=== PATIENT | male | born 1970 | race Caucasian/White ===

== ENCOUNTER 2019-05-13 18:41 | Emergency (ER) | payer OTHER ==
[2019-05-13] MEDS ORDERED: Sodium Chloride 0.9% 1,000 ML IV ONE (19:47)
[2019-05-13] MEDS ORDERED: Morphine 10 MG/ML Syringe IVPUSH ONE (19:47)
--- NOTE | 2019-05-13 19:55 | EDM.PDOC ---
ED HPI GENERAL MEDICAL PROBLEM - General Chief Complaint: Gastrointestinal Problem Stated Complaint: CHEST PAIN, DIARRHEA Time Seen by Provider: 05/13/19 19:20 Source of Information: Reports: Patient History Limitations: Reports: No Limitations - History of Present Illness INITIAL COMMENTS - FREE TEXT/NARRATIVE: 48-year-old gentleman presents to the emergency room with a chief complaint of abdominal pain. Patient has a history of pancreatitis, appendicitis, and multiple abdominal surgeries. Onset: Today Duration: Hour(s):, Getting Worse Location: Reports: Abdomen Quality: Reports: Ache Severity: Moderate Improves with: Reports: None Worsens with: Reports: None Associated Symptoms: Reports: Nausea/Vomiting Chest/Abd Pain Score (Numeric/FACES): 5 - Related Data Allergies Allergy/AdvReac Type Severity Reaction Status Date / Time No Known Allergies Allergy Verified 05/13/19 19:15 Home Meds: Home Meds Celecoxib [CeleBREX] 200 mg PO DAILY 05/13/19 [History] Escitalopram [Lexapro] 10 mg PO DAILY 05/13/19 [History] Lisinopril [Zestril] 20 mg PO DAILY 05/13/19 [History] Omeprazole/Sodium Bicarbonate [Zegerid OTC 20-1,100 MG] 1 tab PO DAILY 05/13/19 [History] Tamsulosin [Flomax] 0.4 mg PO DAILY 05/13/19 [History] atorvaSTATin [Lipitor] 20 mg PO DAILY 05/13/19 [History] Past Medical History Cardiovascular History: Reports: High Cholesterol, Hypertension Genitourinary History: Reports: Prostate Disorder, Renal Calculus Neurological History: Reports: Migraines Psychiatric History: Reports: Anxiety - Infectious Disease History Infectious Disease History: Reports: Chicken Pox - Past Surgical History GI Surgical History: Reports: Appendectomy, Cholecystectomy, Hernia Repair/Other Musculoskeletal Surgical History: Reports: Other (See Below) Other Musculoskeletal Surgeries/Procedures:: Knee Scope Social & Family History - Tobacco Use Smoking Status *Q: Never Smoker - Caffeine Use Caffeine Use: Reports: None - Recreational Drug Use Recreational Drug Use: No ED ROS GENERAL - Review of Systems Review Of Systems: See Below Constitutional: Reports: No Symptoms HEENT: Reports: No Symptoms Respiratory: Reports: No Symptoms Cardiovascular: Reports: No Symptoms Endocrine: Reports: No Symptoms GI/Abdominal: Reports: No Symptoms, Abdominal Pain : Reports: No Symptoms Musculoskeletal: Reports: No Symptoms Skin: Reports: No Symptoms Neurological: Reports: No Symptoms Psychiatric: Reports: No Symptoms Hematologic/Lymphatic: Reports: No Symptoms Immunologic: Reports: No Symptoms ED EXAM, GI/ABD - Physical Exam Exam: See Below Exam Limited By: No Limitations General Appearance: Alert, WD/WN, No Apparent Distress Eyes: Bilateral: Normal Appearance Ears: Normal External Exam, Normal Canal, Hearing Grossly Normal Nose: Normal Inspection, Normal Mucosa Throat/Mouth: Normal Inspection, Normal Lips Head: Atraumatic, Normocephalic Neck: Normal Inspection, Supple, Non-Tender Respiratory/Chest: No Respiratory Distress, Lungs Clear, Normal Breath Sounds, No Accessory Muscle Use, Chest Non-Tender Cardiovascular: Normal Peripheral Pulses, Regular Rate, Rhythm GI/Abdominal Exam: Normal Bowel Sounds, Soft, Non-Tender, No Abnormal Bruit, No Mass (Male) Exam: No Hernia, Normal Inspection Back Exam: Normal Inspection, Full Range of Motion Extremities: Normal Inspection, Normal Range of Motion Neurological: Alert, Oriented, CN II-XII Intact, Normal Reflexes Psychiatric: Normal Affect Skin Exam: Warm, Dry, Intact, Normal Color Lymphatic: No Adenopathy Course - Vital Signs Last Recorded V/S: Last Vital Signs Temp 98.3 F 05/13/19 22:37 Pulse 87 05/13/19 22:37 Resp 18 05/13/19 22:37 BP 109/64 05/13/19 22:37 Pulse Ox 97 05/13/19 22:37 - Orders/Labs/Meds Orders: Active Orders 24 hr Category Date Time Status EKG 12 Lead [EKG Documentation Completion] [RC] STAT Care 05/13/19 19:49 Active Sodium Chloride 0.9% [Normal Saline] 500 ml Med 05/13/19 21:15 Active IV STAT Medication Orders Sodium Chloride (Normal Saline) 500 mls @ 200 mls/hr IV STAT LATRICE Last Admin: 05/13/19 21:40 Dose: 200 mls/hr Labs: Laboratory Tests 05/13/19 05/13/19 05/13/19 Range/Units 19:50 19:53 19:53 WBC 12.37 H (4.0-11.0) K/uL RBC 4.95 (4.50-5.90) M/uL Hgb 14.7 (13.0-17.0) g/dL Hct 44.1 (38.0-50.0) % MCV 89.1 (80.0-98.0) fL MCH 29.7 (27.0-32.0) pg MCHC 33.3 (31.0-37.0) g/dL RDW Std Deviation 44.3 (28.0-62.0) fl RDW Coeff of Chris 14 (11.0-15.0) % Plt Count 265 (150-400) K/uL MPV 9.30 (7.40-12.00) fL Neut % (Auto) 71.6 (48.0-80.0) % Lymph % (Auto) 18.1 (16.0-40.0) % [place] % (Auto) 8.5 (0.0-15.0) % Eos % (Auto) 1.6 (0.0-7.0) % Baso % (Auto) 0.2 (0.0-1.5) % Neut # (Auto) 8.9 H (1.4-5.7) K/uL Lymph # (Auto) 2.2 (0.6-2.4) K/uL [place] # (Auto) 1.1 H (0.0-0.8) K/uL Eos # (Auto) 0.2 (0.0-0.7) K/uL Baso # (Auto) 0.0 (0.0-0.1) K/uL Nucleated RBC % 0.0 /100WBC Nucleated RBCs # 0 K/uL Sodium 139 (136-148) mmol/L Potassium 3.5 (3.5-5.1) mmol/L Chloride 103 (98-107) mmol/L Carbon Dioxide 25.6 (21.0-32.0) mmol/L BUN 23 H (7.0-18.0) mg/dL Creatinine 1.4 H (0.8-1.3) mg/dL Est Cr Clr Drug Dosing 65.90 mL/min Estimated GFR (MDRD) 53.9 ml/min Glucose 97 (74-106) mg/dL Calcium 8.8 (8.5-10.1) mg/dL Total Bilirubin 0.9 (0.2-1.0) mg/dL AST 44 H (15-37) IU/L ALT 81 H (14-63) IU/L Alkaline Phosphatase 112 (46-116) U/L Troponin I < 0.050 (0.000-0.056) ng/mL Total Protein 7.0 (6.4-8.2) g/dL Albumin 3.8 (3.4-5.0) g/dL Globulin 3.2 (2.6-4.0) g/dL Albumin/Globulin Ratio 1.2 (0.9-1.6) Lipase 89 (73-393) U/L Urine Color YELLOW Urine Appearance CLEAR Urine pH 6.0 (5.0-8.0) Ur Specific [place] 1.025 (1.001-1.035) Urine Protein NEGATIVE (NEGATIVE) mg/dL Urine Glucose (UA) NEGATIVE (NEGATIVE) mg/dL Urine Ketones NEGATIVE (NEGATIVE) mg/dL Urine Occult Blood TRACE-INTACT H (NEGATIVE) Urine Nitrite NEGATIVE (NEGATIVE) Urine Bilirubin NEGATIVE (NEGATIVE) Urine Urobilinogen 0.2 (<2.0) EU/dL Ur Leukocyte Esterase NEGATIVE (NEGATIVE) Urine RBC 1-2 (0-2/HPF) Urine WBC 0-1 (0-5/HPF) Ur Epithelial Cells RARE (NONE-FEW) Urine Bacteria RARE (NEGATIVE) 05/13/19 Range/Units 23:52 WBC (4.0-11.0) K/uL RBC (4.50-5.90) M/uL Hgb (13.0-17.0) g/dL Hct (38.0-50.0) % MCV (80.0-98.0) fL MCH (27.0-32.0) pg MCHC (31.0-37.0) g/dL RDW Std Deviation (28.0-62.0) fl RDW Coeff of Chris (11.0-15.0) % Plt Count (150-400) K/uL MPV (7.40-12.00) fL Neut % (Auto) (48.0-80.0) % Lymph % (Auto) (16.0-40.0) % [place] % (Auto) (0.0-15.0) % Eos % (Auto) (0.0-7.0) % Baso % (Auto) (0.0-1.5) % Neut # (Auto) (1.4-5.7) K/uL Lymph # (Auto) (0.6-2.4) K/uL [place] # (Auto) (0.0-0.8) K/uL Eos # (Auto) (0.0-0.7) K/uL Baso # (Auto) (0.0-0.1) K/uL Nucleated RBC % /100WBC Nucleated RBCs # K/uL Sodium (136-148) mmol/L Potassium (3.5-5.1) mmol/L Chloride (98-107) mmol/L Carbon Dioxide (21.0-32.0) mmol/L BUN (7.0-18.0) mg/dL Creatinine (0.8-1.3) mg/dL Est Cr Clr Drug Dosing mL/min Estimated GFR (MDRD) ml/min Glucose (74-106) mg/dL Calcium (8.5-10.1) mg/dL Total Bilirubin (0.2-1.0) mg/dL AST (15-37) IU/L ALT (14-63) IU/L Alkaline Phosphatase (46-116) U/L Troponin I < 0.050 (0.000-0.056) ng/mL Total Protein (6.4-8.2) g/dL Albumin (3.4-5.0) g/dL Globulin (2.6-4.0) g/dL Albumin/Globulin Ratio (0.9-1.6) Lipase (73-393) U/L Urine Color Urine Appearance Urine pH (5.0-8.0) Ur Specific [place] (1.001-1.035) Urine Protein (NEGATIVE) mg/dL Urine Glucose (UA) (NEGATIVE) mg/dL Urine Ketones (NEGATIVE) mg/dL Urine Occult Blood (NEGATIVE) Urine Nitrite (NEGATIVE) Urine Bilirubin (NEGATIVE) Urine Urobilinogen (<2.0) EU/dL Ur Leukocyte Esterase (NEGATIVE) Urine RBC (0-2/HPF) Urine WBC (0-5/HPF) Ur Epithelial Cells (NONE-FEW) Urine Bacteria (NEGATIVE) Meds: Medications Generic Name Dose Route Start Last Admin Trade Name Freq PRN Reason Stop Dose Admin Sodium Chloride 500 mls @ 200 mls/hr 05/13/19 21:15 05/13/19 21:40 Normal Saline IV 200 mls/hr STAT LATRICE Administration Discontinued Medications Generic Name Dose Route Start Last Admin Trade Name Davion PRN Reason Stop Dose Admin Sodium Chloride 1,000 mls @ 1,000 mls/hr 05/13/19 19:47 05/13/19 19:53 Normal Saline IV 05/13/19 20:46 1,000 mls/hr .Bolus ONE Administration Morphine Sulfate 5 mg 05/13/19 19:47 05/13/19 20:05 Morphine IVPUSH 05/13/19 19:48 5 mg ONETIME ONE Administration Ondansetron HCl 4 mg 05/13/19 19:59 05/13/19 20:04 Zofran IVPUSH 05/13/19 20:00 4 mg ONETIME ONE Administration Departure - Departure Time of Disposition: 00:39 Disposition: Home, Self-Care 01 Condition: Good Clinical Impression: Gastroenteritis - Discharge Information Instructions: Viral Gastroenteritis, Adult, [id number] Referrals: Humble Amado MD [Primary Care Provider] - Forms: ED Department Discharge Additional Instructions: Take your medication as prescribed. Return for any problems. Follow-up with your primary care physician. Sepsis Event Note - Evaluation Sepsis Screening Result: No Definite Risk - Focused Exam Vital Signs: Vital Signs Temp Pulse Resp BP Pulse Ox 05/13/19 22:37 98.3 F 87 18 109/64 97 05/13/19 21:44 95 16 109/64 98 05/13/19 20:50 97.9 F 82 18 111/67 96 05/13/19 20:08 98.0 F 83 18 105/77 98 05/13/19 19:18 96.9 F 112 H 16 111/78 97 Date Exam was Performed: 05/14/19 Time Exam was Performed: 00:39 - My Orders Last 24 Hours: My Active Orders 05/13/19 19:49 EKG 12 Lead [EKG Documentation Completion] [RC] STAT 05/13/19 21:15 Sodium Chloride 0.9% [Normal Saline] 500 ml IV STAT - Assessment/Plan Last 24 Hours: My Active Orders 05/13/19 19:49 EKG 12 Lead [EKG Documentation Completion] [RC] STAT 05/13/19 21:15 Sodium Chloride 0.9% [Normal Saline] 500 ml IV STAT
[2019-05-13] MEDS ORDERED: Ondansetron 4 MG/2 ML SDV IVPUSH ONE (19:59)
[2019-05-13 20:25] LABS: BLOOD UREA NITROGEN,BUN 23 mg/dL (7.0-18.0); CARBON DIOXIDE,CO2 25.6 mmol/L (21.0-32.0); CHLORIDE,CL 103 mmol/L (98-107); GLUCOSE RANDOM 97 mg/dL (74-106); LIPASE 89 U/L (73-393); POTASSIUM,K 3.5 mmol/L (3.5-5.1); SODIUM,NA 139 mmol/L (136-148)
--- NOTE | 2019-05-13 20:50 | CR ---
Chest: Frontal view of the chest was obtained. Comparison: No prior chest imaging is available. Heart size and mediastinum are normal. Lungs are clear with no acute parenchymal change. Bony structures are grossly intact. Impression: 1. Nothing acute is appreciated on frontal chest x-ray. Diagnostic code #1 Study was dictated in MDT
--- NOTE | 2019-05-13 20:57 | CT ---
CT abdomen and pelvis Technique: Multiple axial sections were obtained from above the dome of the diaphragm inferiorly through the abdomen and pelvis through the pubic symphysis. Intravenous and oral contrast not utilized. Comparison: No prior abdominal imaging is available. Findings: Visualized lung bases show nothing acute. Liver shows a low-density lesion compatible with a cyst within the dome of the right lobe measuring 1.2 cm. No additional abnormality is appreciated within the liver. Surgical clips are seen from prior cholecystectomy. Spleen appears within normal limits. Adrenal glands show no nodule. Pancreas shows no focal parenchymal abnormality. Aorta shows atherosclerotic change without aneurysm. No retroperitoneal adenopathy or mesenteric abnormalities are seen. Surgical material is seen around the cecum. Appendix is not visualized. Kidney shows several small nonobstructing calculi. Small cyst is noted off the left medial kidney measuring 1.6 cm. RIGHT kidney shows a small cortical cyst anteriorly measuring 1 cm. No additional abnormality is seen within the kidneys. Ureters show no dilatation. No abnormal calcifications are seen along the course of the ureters. Fat-containing umbilical hernia is noted. No pelvic mass or adenopathy is seen. No free fluid or inflammatory change is identified. Bone window settings were reviewed which shows disc space narrowing at L4-L5 with vacuum phenomena. No acute osseous finding is appreciated. Impression: 1. Findings as noted above. 2. Nothing acute is appreciated on noncontrast CT study of the abdomen and pelvis. Diagnostic code #2 Study was dictated in MDT
[2019-05-13] MEDS ORDERED: Sodium Chloride 0.9% 500 ML IV SCH (21:15)
== END 2019-05-14 01:00 | disposition home or self-care (01) ==
LOC: MW.ED 18:41
DX: K52.9 Noninfective gastroenteritis and colitis, unspecified (principal); I10 Essential (primary) hypertension
CPT/HCPCS: 36415; 71045; 74176; 80053; 81001; 83690; 84484; 85025; 93005; 96361; 96374; 96375; 99285; J2270; J2405; J7030; J7040; 99283

== ENCOUNTER 2019-09-04 21:09 | Emergency (ER) | payer OTHER ==
[2019-09-04] MEDS ORDERED: Ondansetron 4 MG/2 ML SDV IVPUSH ONE (21:32)
[2019-09-04] MEDS ORDERED: Sodium Chloride 0.9% 2.5 ML Syringe FLUSH PRN (21:32)
[2019-09-04] MEDS ORDERED: Aspirin 81 MG Tab.Chew PO ONE (21:32)
[2019-09-04] MEDS ORDERED: Sodium Chloride 0.9% 10 ML Syringe FLUSH PRN (21:32)
[2019-09-04] MEDS ORDERED: Sodium Chloride 0.9% 1,000 ML IV ONE (21:35)
--- NOTE | 2019-09-04 21:37 | EDM.PDOC ---
ED HPI GENERAL MEDICAL PROBLEM - General Chief Complaint: Fever Stated Complaint: fever, nausea, chills Time Seen by Provider: 09/04/19 21:18 - History of Present Illness INITIAL COMMENTS - FREE TEXT/NARRATIVE: History of present illness: [] Reports that he is going began to have muscle aches and joint pain in his large joints. Since then he has had gradual increase symptoms except yesterday he was relatively symptom-free until evening. At that time he added to his other symptoms nausea and today vomits. Continues to have intermittent chest pressure and shortness of breath as well as diaphoresis. Muscle aches was the p rimary concern but has been febrile off and on for 4 days. As high as 102. Treated for both blood pressure and cholesterol. Does not smoke he has a negative family history of heart disease. Review of systems: As per history of present illness and below otherwise all systems reviewed and negative. Past medical history: As per history of present illness and as reviewed below otherwise noncont ributory. Surgical history: As per history of present illness and as reviewed below otherwise noncontributory. Social history: No reported history of drug or alcohol abuse. Family history: As per history of present illness and as reviewed below otherwise noncontributory. Physical exam: Constitutional - well developed, well-nourished and in no acute distress -quite a bit over the ideal body weight for his height HEENT - normocephalic, no evidence of trauma - external nose and mouth normal - no mass in neck and no JVD - mucosae moist EYES - full EOM, PERRL, no icterus - no evidence of inflammation, injection, or drainage Respiratory - no respiratory distress, equal bilateral expansion, lungs clear to auscultation and no abnormal lung sounds Cardiovascular - Regular Rhythm with S1 and S2 appreciated and no murmur, gallop or rub. Peripheral pulses symmetrically normal in all four extremities GI - abdomen soft without distension or organomegaly - normal bowel sounds - no guard or rebound Musculoskeletal no gross deformity of long bones or joints - no tenderness, swelling or edema Neurologic - Alert and oriented times four - CN II-XII grossly intact - motor sensory and coordination symmetrically normal Psychiatric - appropriate mood and affect with normal thought content Hematologic - No petechiae or purpura - mucosa appropriate color and sclera not pale - normal nail bed color and refill Integument - no rash or evidence of trauma - normal turgor Diagnostics: [] Therapeutics: [] Impression: [] Plan: [] Definitive disposition and diagnosis as appropriate pending reevaluation and review of above. general bodyaches Pain Score (Numeric/FACES): 6 - Related Data Allergies Allergy/AdvReac Type Severity Reaction Status Date / Time No Known Allergies Allergy Verified 09/04/19 21:23 Home Meds: Home Meds Celecoxib [CeleBREX] 200 mg PO DAILY 05/13/19 [History] Escitalopram [Lexapro] 10 mg PO DAILY 05/13/19 [History] Tamsulosin [Flomax] 0.4 mg PO BEDTIME 05/13/19 [History] atorvaSTATin [Lipitor] 20 mg PO DAILY 05/13/19 [History] lisinopriL [Zestril] 20 mg PO DAILY 05/13/19 [History] Past Medical History HEENT History: Reports: Impaired Vision, Other (See Below) Other HEENT History: wears glasses Cardiovascular History: Reports: High Cholesterol, Hypertension Respiratory History: Reports: Sleep Apnea, Other (See Below) Other Respiratory History: on cpap Gastrointestinal History: Reports: None Genitourinary History: Reports: Prostate Disorder, Renal Calculus Musculoskeletal History: Reports: None Neurological History: Reports: Migraines Psychiatric History: Reports: Anxiety - Infectious Disease History Infectious Disease History: Reports: Chicken Pox - Past Surgical History HEENT Surgical History: Reports: None Cardiovascular Surgical History: Reports: None Respiratory Surgical History: Reports: None GI Surgical History: Reports: Appendectomy, Cholecystectomy, Hernia Repair/Other Male Surgical History: Reports: Kidney Stone Extraction Neurological Surgical History: Reports: None Musculoskeletal Surgical History: Reports: Other (See Below) Other Musculoskeletal Surgeries/Procedures:: Knee Scope Social & Family History - Family History Family Medical History: Noncontributory - Tobacco Use Smoking Status *Q: Never Smoker Second Hand Smoke Exposure: No - Caffeine Use Caffeine Use: Reports: Tea - Recreational Drug Use Recreational Drug Use: No ED ROS GENERAL - Review of Systems Review Of Systems: Comprehensive ROS is negative, except as noted in HPI. ED EXAM, GENERAL - Physical Exam Exam: See Below Free Text/Narrative:: My physical exam as in the HPI EKG INTERPRETATION EKG Date: 09/04/19 Rhythm: NSR P-Wave: Present QRS: Normal Comparison: No Change EKG Interpretation Comments: No acute ischemia or injury Course - Vital Signs Text/Narrative:: 10:47 PM heart rate remains 97-99 oxygen saturation 99 and patient probably has a viral syndrome. Because of his size I will add a d-dimer and if it is po sitive we will study him for possible pulmonary embolus otherwise treat him as a virus. 2301 the patient's d-dimer is negative and he will be discharged with instructions to be cared for as a viral infection. Last Recorded V/S: Last Vital Signs Temp 97.6 F 09/04/19 21:20 Pulse 101 H 09/04/19 22:56 Resp 16 09/04/19 22:56 BP 137/83 09/04/19 22:56 Pulse Ox 94 L 09/04/19 22:56 - Orders/Labs/Meds Orders: Active Orders 24 hr Category Date Time Status EKG Documentation Completion [RC] AM Care 09/04/19 21:32 Active Sodium Chloride 0.9% [Saline Flush] Med 09/04/19 21:32 Active 10 ml FLUSH ASDIRECTED PRN Sodium Chloride 0.9% [Saline Flush] Med 09/04/19 21:32 Active 2.5 ml FLUSH ASDIRECTED PRN Saline Lock Insert [OM.PC] Stat Oth 09/04/19 21:32 Ordered Medication Orders Sodium Chloride (Saline Flush) 10 ml FLUSH ASDIRECTED PRN PRN Reason: Keep Vein Open Sodium Chloride (Saline Flush) 2.5 ml FLUSH ASDIRECTED PRN PRN Reason: Keep Vein Open Labs: Laboratory Tests 09/04/19 09/04/19 09/04/19 Range/Units 21:45 21:45 21:45 WBC 5.57 (4.0-11.0) K/uL RBC 4.86 (4.50-5.90) M/uL Hgb 14.3 (13.0-17.0) g/dL Hct 43.5 (38.0-50.0) % MCV 89.5 (80.0-98.0) fL MCH 29.4 (27.0-32.0) pg MCHC 32.9 (31.0-37.0) g/dL RDW Std Deviation 42.7 (28.0-62.0) fl RDW Coeff of Chris 13 (11.0-15.0) % Plt Count 216 (150-400) K/uL MPV 9.00 (7.40-12.00) fL Neut % (Auto) 63.3 (48.0-80.0) % Lymph % (Auto) 24.8 (16.0-40.0) % [place] % (Auto) 10.8 (0.0-15.0) % Eos % (Auto) 0.9 (0.0-7.0) % Baso % (Auto) 0.2 (0.0-1.5) % Neut # (Auto) 3.5 (1.4-5.7) K/uL Lymph # (Auto) 1.4 (0.6-2.4) K/uL [place] # (Auto) 0.6 (0.0-0.8) K/uL Eos # (Auto) 0.1 (0.0-0.7) K/uL Baso # (Auto) 0.0 (0.0-0.1) K/uL Nucleated RBC % 0.0 /100WBC Nucleated RBCs # 0 K/uL D-Dimer, Quantitative 0.37 (0.0-0.50) mg/L FEU Sodium 140 (136-148) mmol/L Potassium 3.4 L (3.5-5.1) mmol/L Chloride 103 (98-107) mmol/L Carbon Dioxide 26.9 (21.0-32.0) mmol/L BUN 21 H (7.0-18.0) mg/dL Creatinine 1.3 (0.8-1.3) mg/dL Est Cr Clr Drug Dosing 70.97 mL/min Estimated GFR (MDRD) 58.7 ml/min Glucose 105 (74-106) mg/dL Calcium 8.2 L (8.5-10.1) mg/dL Total Bilirubin 0.7 (0.2-1.0) mg/dL AST 33 (15-37) IU/L ALT 47 (14-63) IU/L Alkaline Phosphatase 124 H (46-116) U/L Creatine Kinase 142 (26-308) U/L Troponin I < 0.050 (0.000-0.056) ng/mL Total Protein 7.8 (6.4-8.2) g/dL Albumin 3.8 (3.4-5.0) g/dL Globulin 4.0 (2.6-4.0) g/dL Albumin/Globulin Ratio 0.9 (0.9-1.6) Lipase 131 (73-393) U/L COVID-19 (MARCUS) (NEGATIVE) 09/04/19 Range/Units 22:15 WBC (4.0-11.0) K/uL RBC (4.50-5.90) M/uL Hgb (13.0-17.0) g/dL Hct (38.0-50.0) % MCV (80.0-98.0) fL MCH (27.0-32.0) pg MCHC (31.0-37.0) g/dL RDW Std Deviation (28.0-62.0) fl RDW Coeff of Chris (11.0-15.0) % Plt Count (150-400) K/uL MPV (7.40-12.00) fL Neut % (Auto) (48.0-80.0) % Lymph % (Auto) (16.0-40.0) % [place] % (Auto) (0.0-15.0) % Eos % (Auto) (0.0-7.0) % Baso % (Auto) (0.0-1.5) % Neut # (Auto) (1.4-5.7) K/uL Lymph # (Auto) (0.6-2.4) K/uL [place] # (Auto) (0.0-0.8) K/uL Eos # (Auto) (0.0-0.7) K/uL Baso # (Auto) (0.0-0.1) K/uL Nucleated RBC % /100WBC Nucleated RBCs # K/uL D-Dimer, Quantitative (0.0-0.50) mg/L FEU Sodium (136-148) mmol/L Potassium (3.5-5.1) mmol/L Chloride (98-107) mmol/L Carbon Dioxide (21.0-32.0) mmol/L BUN (7.0-18.0) mg/dL Creatinine (0.8-1.3) mg/dL Est Cr Clr Drug Dosing mL/min Estimated GFR (MDRD) ml/min Glucose (74-106) mg/dL Calcium (8.5-10.1) mg/dL Total Bilirubin (0.2-1.0) mg/dL AST (15-37) IU/L ALT (14-63) IU/L Alkaline Phosphatase (46-116) U/L Creatine Kinase (26-308) U/L Troponin I (0.000-0.056) ng/mL Total Protein (6.4-8.2) g/dL Albumin (3.4-5.0) g/dL Globulin (2.6-4.0) g/dL Albumin/Globulin Ratio (0.9-1.6) Lipase (73-393) U/L COVID-19 (MARCUS) NEGATIVE (NEGATIVE) Meds: Medications Generic Name Dose Route Start Last Admin Trade Name Freq PRN Reason Stop Dose Admin Sodium Chloride 10 ml 09/04/19 21:32 Saline Flush FLUSH ASDIRECTED PRN Keep Vein Open Sodium Chloride 2.5 ml 09/04/19 21:32 Saline Flush FLUSH ASDIRECTED PRN Keep Vein Open Discontinued Medications Generic Name Dose Route Start Last Admin Trade Name Freq PRN Reason Stop Dose Admin Aspirin 324 mg 09/04/19 21:32 09/04/19 22:02 Aspirin PO 09/04/19 21:33 324 mg ONETIME ONE Administration Sodium Chloride 1,000 mls @ 999 mls/hr 09/04/19 21:35 09/04/19 22:01 Normal Saline IV 09/04/19 22:35 999 mls/hr .BOLUS ONE Administration Ondansetron HCl 4 mg 09/04/19 21:32 09/04/19 22:02 Zofran IVPUSH 09/04/19 21:33 4 mg ONETIME ONE Administration Departure - Departure Time of Disposition: 23:02 Disposition: Home, Self-Care 01 Condition: Good Clinical Impression: Viral syndrome, Myalgia - Discharge Information Instructions: Viral Respiratory Infection, [id number], Musculoskeletal Pain Referrals: Humble Amado MD [Primary Care Provider] - Forms: ED Department Discharge Additional Instructions: The following information is given to patients seen in the emergency department who are being discharged to home. This information is to outline your options for follow-up care. We provide all patients seen in our emergency department with a follow-up referral. The need for follow-up, as well as the timing and circumstances, are variable depending upon the specifics of your emergency department visit. If you don't have a primary care physician on staff, we will provide you with a referral. We always advise you to contact your personal physician following an emergency department visit to inform them of the circumstance of the visit and for follow-up with them and/or the need for any referrals to a consulting sp ecialist. The emergency department will also refer you to a specialist when appropriate. This referral assures that you have the opportunity for follow-up care with a specialist. All of these measure are taken in an effort to provide you with optimal care, which includes your follow-up. Under all circumstances we always encourage you to contact your private physician who remains a resource for coordinating your care. When calling for follow-up care, please make the office aware that this follow-up is from your recent emergency room visit. If for any reason you are refused follow-up, please contact the [facility] Emergency Department at and asked to speak to the emergency department charge nurse. [facility] - [facility] [address] [place] [address] [place] [address] Sepsis Event Note (ED) - Evaluation Sepsis Screening Result: No Definite Risk - Focused Exam Vital Signs: Vital Signs Temp Pulse Resp BP Pulse Ox 09/04/19 22:56 101 H 16 137/83 94 L 09/04/19 21:20 97.6 F 104 H 19 129/84 96 - My Orders Last 24 Hours: My Active Orders 09/04/19 21:32 EKG Documentation Completion [RC] AM Sodium Chloride 0.9% [Saline Flush] 10 ml FLUSH ASDIRECTED PRN Sodium Chloride 0.9% [Saline Flush] 2.5 ml FLUSH ASDIRECTED PRN Saline Lock Insert [OM.PC] Stat - Assessment/Plan Last 24 Hours: My Active Orders 09/04/19 21:32 EKG Documentation Completion [RC] AM Sodium Chloride 0.9% [Saline Flush] 10 ml FLUSH ASDIRECTED PRN Sodium Chloride 0.9% [Saline Flush] 2.5 ml FLUSH ASDIRECTED PRN Saline Lock Insert [OM.PC] Stat
[2019-09-04 22:22] LABS: BLOOD UREA NITROGEN,BUN 21 mg/dL (7.0-18.0); CARBON DIOXIDE,CO2 26.9 mmol/L (21.0-32.0); CHLORIDE,CL 103 mmol/L (98-107); GLUCOSE RANDOM 105 mg/dL (74-106); LIPASE 131 U/L (73-393); POTASSIUM,K 3.4 mmol/L (3.5-5.1); SODIUM,NA 140 mmol/L (136-148)
--- NOTE | 2019-09-04 22:31 | CR ---
Indication: Chest pressure Technique: Chest 1 view Comparison: None Findings/Impression: Cardiovascular and mediastinum: Heart size and vasculature are normal in caliber and appearance. Mediastinum is within normal limits. Lungs and pleural space: Lungs are clear. No sign of infiltrate or mass. No sign of pleural effusion. No pneumothorax. Bones and soft tissues: No significant findings. Dictated by Khadijah De Leon MD @ Sep 04 2019 10:29PM Signed by Dr. Khadijah De Leon @ Sep 04 2019 10:29PM
== END 2019-09-04 23:20 | disposition home or self-care (01) ==
LOC: MW.ED 21:09
DX: B34.9 Viral infection, unspecified (principal); M79.10 Myalgia, unspecified site; F41.9 Anxiety disorder, unspecified; E78.00 Pure hypercholesterolemia, unspecified; I10 Essential (primary) hypertension; Z20.828 Contact with and (suspected) exposure to other viral communicable diseases; Z90.49 Acquired absence of other specified parts of digestive tract; Z79.899 Other long term (current) drug therapy
CPT/HCPCS: 36415; 71045; 80053; 82550; 83690; 84484; 85025; 85379; 87635; 93005; 96374; 99284; A9270; J2405; J7030; 99283; U0002

== ENCOUNTER 2019-09-07 23:10 | Emergency (ER) | payer OTHER ==
[2019-09-07] MEDS ORDERED: HYDROmorphone 1 MG/ML Syringe IVPUSH ONE (23:30)
[2019-09-07] MEDS ORDERED: Ondansetron 4 MG/2 ML SDV IVPUSH ONE (23:30)
[2019-09-07] MEDS ORDERED: Sodium Chloride 0.9% 1,000 ML IV ONE (23:32)
[2019-09-07] MEDS ORDERED: Sodium Chloride 0.9% 10 ML Syringe FLUSH PRN (23:33)
[2019-09-07] MEDS ORDERED: Sodium Chloride 0.9% 2.5 ML Syringe FLUSH PRN (23:33)
[2019-09-07 23:53] LABS: BLOOD UREA NITROGEN,BUN 19 mg/dL (7.0-18.0); CARBON DIOXIDE,CO2 25.2 mmol/L (21.0-32.0); CHLORIDE,CL 103 mmol/L (98-107); GLUCOSE RANDOM 104 mg/dL (74-106); LIPASE 146 U/L (73-393); POTASSIUM,K 3.7 mmol/L (3.5-5.1); SODIUM,NA 140 mmol/L (136-148)
[2019-09-08] MEDS ORDERED: Alum Hydrox/Mag Hydrox/Simeth 15 ML, Lidocaine 2% 5 ML PO ONE ×2 (00:08)
[2019-09-08] MEDS ORDERED: Iopamidol 755 MG/ML 500 ML Multipack Bottle IVPUSH STA (00:39)
--- NOTE | 2019-09-08 00:47 | CR ---
INDICATION: chest pain INDICATION: Chest pain TECHNIQUE: Chest 1 view. COMPARISON: 09/04/2019 FINDINGS: Cardiovascular and mediastinum: Heart size and vasculature are normal in caliber and appearance. Mediastinum is within normal limits. Lungs and pleural space: Bilateral atelectasis. No sign of infiltrate or mass. No sign of pleural effusion. No pneumothorax. Bones and soft tissues: No significant findings. IMPRESSION: Unremarkable chest. Dictated by Mauricio Del Castillo MD @ 09/08/2019 12:46:25 AM Dictated by: Mauricio Del Castillo MD @ 09/08/2019 00:46:30 (Electronically Signed)
--- NOTE | 2019-09-08 01:28 | CT ---
INDICATION: Abdominal pain and fever TECHNIQUE: Axial images were obtained from the diaphragm to the pubic symphysis. Reformats were obtained in the coronal and sagittal plane. IV Contrast: 100 cc Isovue 370 Oral Contrast: None COMPARISON: Abdomen and pelvis CT 05/13/2019 FINDINGS: Lower chest: Trace right pleural effusion with patchy and linear areas of consolidation lung bases, likely atelectasis. Trace pericardial fluid. Liver: Normal in contour with 13 millimeter cyst at the dome. Gallbladder and bile ducts: Status post cholecystectomy. Spleen: Unremarkable. Normal in size without mass. Pancreas: Unremarkable. No mass or inflammation. Adrenal glands: Unremarkable. No nodules. Kidneys: Symmetric renal enhancement without hydronephrosis with exophytic 10 millimeter cyst at the anterior aspect of the right kidney. Nonobstructing nephrolithiasis lower pole left kidney. Exophytic cyst lower pole left kidney measuring 9 millimeters. Vasculature: Unremarkable. GI tract: Stomach unremarkable with no dilated loops of large or small intestine. Suture line at the cecal tip suggesting prior appendectomy. Fat containing umbilical hernia. Colonic diverticulosis without localizing inflammation. Pelvis: Unremarkable. Bones: Degenerative disc disease L4-5. IMPRESSION: 1. Colonic diverticulosis without genia diverticulitis. 2. Mixed patchy and linear areas of consolidation within the lung bases, favor atelectasis. Trace right pleural effusion. 3. Nonobstructing nephrolithiasis. Please note that all CT scans at this facility use dose modulation, iterative reconstruction, and/or weight-based dosing when appropriate to reduce radiation dose to as low as reasonably achievable. Dictated by John Triana MD @ Sep 08 2019 1:13AM Signed by Dr. John Triana @ Sep 08 2019 1:27AM
--- NOTE | 2019-09-08 01:45 | EDM.PDOC ---
ED HPI GENERAL MEDICAL PROBLEM - General Chief Complaint: Chest Pain Stated Complaint: CHEST PAIN/HARD TIME BREATHING Time Seen by Provider: 09/07/19 23:23 - History of Present Illness INITIAL COMMENTS - FREE TEXT/NARRATIVE: HISTORY AND PHYSICAL: History of present illness: This is a 48-year-old gentleman with history significant for chronic pancreatitis, status post cholecystectomy, status post appendectomy, history of diverticulosis, history of hypertension who presents the ER today complaining of generalized weakness and fever for approximately 1 week. Patient reports that he was here 1 week ago and was evaluated for his symptoms that were very similar to today. Patient reports he had a negative coronavirus test at that time. Patient reports that all his labs are within normal limits. Patient was discharged home with a diagnosis of viral illness but reports he has not gotten much better. Patient reports he has been nauseous with midepigastric abdominal discomfort for approximately 1 week now. Patient reports that his symptoms have improved slightly throughout the course of the week but over the last couple days he is felt increased weakness with decreased p.o. intake. Patient reports that he had an appointment with his primary care physician yesterday, September 07, but he was finally able to get some sleep so he canceled his appointment. This evening, the patient reports that he did not feel well again so his family brought him into the ED secondary to generalized weakness. Patient reports that he is had tactile fevers as well as documented fevers of 100.4 by his family. Patient reports he has had a clear productive cough for approximately 1 week which is new for him. Patient has any sore throat or earache. Patient denies any nuchal rigidity or headaches. Patient complains of midepigastric discomfort and was concerned that he might have diverticulitis. Patient denies any melena or bright red blood per rectum. Patient denies any dysuria frequency urgency. Patient denies any hematuria. Patient reports that his children have been forcing liquids and him that he has been able to keep down. Patient denies any chest pressure or pain rating down his arms. Patient reports that his abdominal pain is nonexertional in nature. Patient reports that his pain is in the midepigastric region and reports he has no chest discomfort. Review of systems: As per history of present illness and below otherwise all systems reviewed and negative. Past medical history: As per history of present illness and as reviewed below otherwise noncontributory. Surgical history: As per history of present illness and as reviewed below otherwise noncontributory. Social history: No reported history of drug or alcohol abuse. Family history: As per history of present illness and as reviewed below otherwise noncontributory. Physical exam: HEENT: Atraumatic, normocephalic, pupils reactive, negative for conjunctival pallor or scleral icterus, mucous membranes moist, throat clear, neck supple, nontender, trachea midline. Lungs: Clear to auscultation, breath sounds equal bilaterally, chest nontender. Heart: S1S2, regular, Abd: Soft, nondistended, no rebound/guarding, no psoas or obturator signs, no tenderness at Mcberney's point, no Beckford's sign. Pt does not present with an exam that would be consistent with an acute surgical abdomen at this time Pelvis: Stable nontender. Genitourinary: Deferred. Rectal: Deferred. Extremities: Atraumatic, negative for cords or calf pain. Neurovascular unremarkable. No edema Neuro: Awake, alert, oriented. Cranial nerves II through XII unremarkable. Cerebellum unremarkable. Motor and sensory unremarkable throughout. Exam nonfocal. Diagnostics: Labs all within normal limits Chest x-ray unremarkable CT scan of abdomen pelvis with IV contrast reveals colonic diverticulosis without genia diverticulitis. Mixed patchy and linear areas of consolidation within the lung bases favoring atelectasis. Trace right pleural effusion. Nonobstructing nephrolithiasis. Patient's urinalysis reveals a normal specific gravity with no evidence of infection. Lactic acid level was normal. WBC level within normal limits. Therapeutics: While the ER, the patient was given 1 L of normal saline, Toradol, Zofran, with significant improvement in his symptoms. Impression: Etiology of the patient's symptoms are unclear. Symptoms including viral gastroenteritis, diverticulitis, perforated ulcer, esophageal reflux, pneumonia, sepsis, as well as several others have been evaluated and ruled out in the ED. Patient symptoms may be related to pneumonia given the atelectasis/consolidation in the lung bases. Patient will be started on Zithromax. Patient was given a prescription for Zofran as well. Plan: At this time, the patient does not meet inpatient level of care. It is possible that the patient does have a pneumonia given the CT scan although it is more than likely that this is atelectasis. Patient will be started empirically on Zithromax and instructed to follow-up with his doctor in 1 to 2 days for reevaluation. Reassessment at the time of disposition demonstrates that the patient is in no acute distress. The patient has remained stable throughout the entire ED visit and is without objective evidence for acute process requiring urgent intervention or hospitalization. The patient is stable for discharge, counseling is provided as documented above, discussed symptomatic treatment and specific conditions for return. I have spoken with the patient/caregive and discussed todays findings, in addition to providing specific details for the plan of care. Questions are answered and there is agreement with the plan. Definitive disposition and diagnosis as appropriate pending reevaluation and review of above. chest Pain Score (Numeric/FACES): 6 - Related Data Allergies Allergy/AdvReac Type Severity Reaction Status Date / Time No Known Allergies Allergy Verified 09/07/19 23:24 Home Meds: Home Meds Celecoxib [CeleBREX] 200 mg PO DAILY 05/13/19 [History] Escitalopram [Lexapro] 10 mg PO DAILY 05/13/19 [History] Tamsulosin [Flomax] 0.4 mg PO BEDTIME 05/13/19 [History] atorvaSTATin [Lipitor] 20 mg PO DAILY 05/13/19 [History] lisinopriL [Zestril] 20 mg PO DAILY 05/13/19 [History] Azithromycin [Zithromax] 250 mg PO DAILY #4 tablet 09/08/19 [Rx] Ondansetron [Zofran ODT] 4 mg PO Q6H PRN #12 tab.dis 09/08/19 [Rx] Past Medical History HEENT History: Reports: Impaired Vision, Other (See Below) Other HEENT History: wears glasses Cardiovascular History: Reports: High Cholesterol, Hypertension Respiratory History: Reports: Sleep Apnea, Other (See Below) Other Respiratory History: on cpap Gastrointestinal History: Reports: None Genitourinary History: Reports: Prostate Disorder, Renal Calculus Musculoskeletal History: Reports: None Neurological History: Reports: Migraines Psychiatric History: Reports: Anxiety - Infectious Disease History Infectious Disease History: Reports: Chicken Pox - Past Surgical History HEENT Surgical History: Reports: None Cardiovascular Surgical History: Reports: None Respiratory Surgical History: Reports: None GI Surgical History: Reports: Appendectomy, Cholecystectomy, Hernia Repair/Other Male Surgical History: Reports: Kidney Stone Extraction Neurological Surgical History: Reports: None Musculoskeletal Surgical History: Reports: Other (See Below) Other Musculoskeletal Surgeries/Procedures:: Knee Scope Social & Family History - Family History Family Medical History: Noncontributory - Tobacco Use Smoking Status *Q: Never Smoker - Caffeine Use Caffeine Use: Reports: Tea - Recreational Drug Use Recreational Drug Use: No ED ROS GENERAL - Review of Systems Review Of Systems: Comprehensive ROS is negative, except as noted in HPI. ED EXAM, GENERAL - Physical Exam Exam: See Below Course - Vital Signs Last Recorded V/S: Last Vital Signs Temp 99.3 F 09/07/19 23:12 Pulse 86 09/08/19 01:16 Resp 22 H 09/08/19 01:16 BP 138/98 H 09/08/19 01:16 Pulse Ox 95 09/08/19 01:16 - Orders/Labs/Meds Orders: Active Orders 24 hr Category Date Time Status EKG Documentation Completion [RC] STAT Care 09/07/19 23:36 Active CULTURE BLOOD [BC] Stat Lab 09/07/19 23:21 Received CULTURE BLOOD [BC] Stat Lab 09/07/19 23:54 Received Sodium Chloride 0.9% [Saline Flush] Med 09/07/19 23:33 Active 10 ml FLUSH ASDIRECTED PRN Sodium Chloride 0.9% [Saline Flush] Med 09/07/19 23:33 Active 2.5 ml FLUSH ASDIRECTED PRN Blood Culture x2 Reflex Set [OM.PC] Stat Oth 09/07/19 23:39 Ordered Saline Lock Insert [OM.PC] Stat Oth 09/07/19 23:33 Ordered Medication Orders Sodium Chloride (Saline Flush) 10 ml FLUSH ASDIRECTED PRN PRN Reason: Keep Vein Open Last Admin: 09/07/19 23:51 Dose: 10 ml Documented by: WENDY Sodium Chloride (Saline Flush) 2.5 ml FLUSH ASDIRECTED PRN PRN Reason: Keep Vein Open Last Admin: 09/07/19 23:51 Dose: 2.5 ml Documented by: WENDY Labs: Laboratory Tests 09/07/19 09/07/19 09/07/19 Range/Units 23:21 23:21 23:21 WBC 5.18 (4.0-11.0) K/uL RBC 4.65 (4.50-5.90) M/uL Hgb 13.9 (13.0-17.0) g/dL Hct 40.7 (38.0-50.0) % MCV 87.5 (80.0-98.0) fL MCH 29.9 (27.0-32.0) pg MCHC 34.2 (31.0-37.0) g/dL RDW Std Deviation 41.7 (28.0-62.0) fl RDW Coeff of Chris 13 (11.0-15.0) % Plt Count 223 (150-400) K/uL MPV 8.80 (7.40-12.00) fL Neut % (Auto) 57.9 (48.0-80.0) % Lymph % (Auto) 32.4 (16.0-40.0) % Charles % (Auto) 9.5 (0.0-15.0) % Eos % (Auto) 0.2 (0.0-7.0) % Baso % (Auto) 0.0 (0.0-1.5) % Neut # (Auto) 3.0 (1.4-5.7) K/uL Lymph # (Auto) 1.7 (0.6-2.4) K/uL Charles # (Auto) 0.5 (0.0-0.8) K/uL Eos # (Auto) 0.0 (0.0-0.7) K/uL Baso # (Auto) 0.0 (0.0-0.1) K/uL Nucleated RBC % 0.0 /100WBC Nucleated RBCs # 0 K/uL Lactate 0.9 (0.20-2.00) mmol/L Sodium 140 (136-148) mmol/L Potassium 3.7 (3.5-5.1) mmol/L Chloride 103 (98-107) mmol/L Carbon Dioxide 25.2 (21.0-32.0) mmol/L BUN 19 H (7.0-18.0) mg/dL Creatinine 1.3 (0.8-1.3) mg/dL Est Cr Clr Drug Dosing 70.97 mL/min Estimated GFR (MDRD) 58.7 ml/min Glucose 104 (74-106) mg/dL Calcium 8.1 L (8.5-10.1) mg/dL Total Bilirubin 0.6 (0.2-1.0) mg/dL AST 34 (15-37) IU/L ALT 43 (14-63) IU/L Alkaline Phosphatase 124 H (46-116) U/L Troponin I < 0.050 (0.000-0.056) ng/mL Total Protein 7.5 (6.4-8.2) g/dL Albumin 3.4 (3.4-5.0) g/dL Globulin 4.1 H (2.6-4.0) g/dL Albumin/Globulin Ratio 0.8 L (0.9-1.6) Lipase 146 (73-393) U/L Urine Color Urine Appearance Urine pH (5.0-8.0) Ur Specific [place] (1.001-1.035) Urine Protein (NEGATIVE) mg/dL Urine Glucose (UA) (NEGATIVE) mg/dL Urine Ketones (NEGATIVE) mg/dL Urine Occult Blood (NEGATIVE) Urine Nitrite (NEGATIVE) Urine Bilirubin (NEGATIVE) Urine Urobilinogen (<2.0) EU/dL Ur Leukocyte Esterase (NEGATIVE) Urine RBC (0-2/HPF) Urine WBC (0-5/HPF) Ur Epithelial Cells (NONE-FEW) Urine Bacteria (NEGATIVE) Urine Mucus (NONE-MOD) 09/08/19 Range/Units 00:30 WBC (4.0-11.0) K/uL RBC (4.50-5.90) M/uL Hgb (13.0-17.0) g/dL Hct (38.0-50.0) % MCV (80.0-98.0) fL MCH (27.0-32.0) pg MCHC (31.0-37.0) g/dL RDW Std Deviation (28.0-62.0) fl RDW Coeff of Chris (11.0-15.0) % Plt Count (150-400) K/uL MPV (7.40-12.00) fL Neut % (Auto) (48.0-80.0) % Lymph % (Auto) (16.0-40.0) % Charles % (Auto) (0.0-15.0) % Eos % (Auto) (0.0-7.0) % Baso % (Auto) (0.0-1.5) % Neut # (Auto) (1.4-5.7) K/uL Lymph # (Auto) (0.6-2.4) K/uL Charles # (Auto) (0.0-0.8) K/uL Eos # (Auto) (0.0-0.7) K/uL Baso # (Auto) (0.0-0.1) K/uL Nucleated RBC % /100WBC Nucleated RBCs # K/uL Lactate (0.20-2.00) mmol/L Sodium (136-148) mmol/L Potassium (3.5-5.1) mmol/L Chloride (98-107) mmol/L Carbon Dioxide (21.0-32.0) mmol/L BUN (7.0-18.0) mg/dL Creatinine (0.8-1.3) mg/dL Est Cr Clr Drug Dosing mL/min Estimated GFR (MDRD) ml/min Glucose (74-106) mg/dL Calcium (8.5-10.1) mg/dL Total Bilirubin (0.2-1.0) mg/dL AST (15-37) IU/L ALT (14-63) IU/L Alkaline Phosphatase (46-116) U/L Troponin I (0.000-0.056) ng/mL Total Protein (6.4-8.2) g/dL Albumin (3.4-5.0) g/dL Globulin (2.6-4.0) g/dL Albumin/Globulin Ratio (0.9-1.6) Lipase (73-393) U/L Urine Color YELLOW Urine Appearance CLEAR Urine pH 7.0 (5.0-8.0) Ur Specific [place] <= 1.005 (1.001-1.035) Urine Protein NEGATIVE (NEGATIVE) mg/dL Urine Glucose (UA) NEGATIVE (NEGATIVE) mg/dL Urine Ketones NEGATIVE (NEGATIVE) mg/dL Urine Occult Blood NEGATIVE (NEGATIVE) Urine Nitrite NEGATIVE (NEGATIVE) Urine Bilirubin NEGATIVE (NEGATIVE) Urine Urobilinogen 4.0 H (<2.0) EU/dL Ur Leukocyte Esterase NEGATIVE (NEGATIVE) Urine RBC NONE SEEN (0-2/HPF) Urine WBC 0-1 (0-5/HPF) Ur Epithelial Cells RARE (NONE-FEW) Urine Bacteria RARE (NEGATIVE) Urine Mucus LIGHT (NONE-MOD) Meds: Medications Generic Name Dose Route Start Last Admin Trade Name Davion PRN Reason Stop Dose Admin Sodium Chloride 10 ml 09/07/19 23:33 09/07/19 23:51 Saline Flush FLUSH 10 ml ASDIRECTED PRN Administration Keep Vein Open Sodium Chloride 2.5 ml 09/07/19 23:33 09/07/19 23:51 Saline Flush FLUSH 2.5 ml ASDIRECTED PRN Administration Keep Vein Open Discontinued Medications Generic Name Dose Route Start Last Admin Trade Name Abrahamq PRN Reason Stop Dose Admin Hydromorphone HCl 0.5 mg 09/07/19 23:30 09/07/19 23:48 Dilaudid IVPUSH 09/07/19 23:31 0.5 mg ONETIME ONE Administration Sodium Chloride 1,000 mls @ 1,000 mls/hr 09/07/19 23:32 09/07/19 23:47 Normal Saline IV 09/08/19 00:31 1,000 mls/hr BOLUS ONE Administration Iopamidol 100 ml 09/08/19 00:39 09/08/19 00:40 Isovue Multipack-370 (76%) IVPUSH 09/08/19 00:40 100 ml ONETIME STA Administration Ondansetron HCl 4 mg 09/07/19 23:30 09/07/19 23:47 Zofran IVPUSH 09/07/19 23:31 4 mg ONETIME ONE Administration Departure - Departure Time of Disposition: 01:45 Disposition: Home, Self-Care 01 Condition: Good Clinical Impression: Pneumonia, Viral illness - Discharge Information Referrals: PCP,None [Primary Care Provider] - Additional Instructions: The etiology of your symptoms are not quite clear after an extensive work-up in the ER today. It is possible that your symptoms are secondary to a pneumonia given the abnormal CT scan report. You will be started on Zithromax as an antibiotic to treat this. You will also be given a prescription for Zofran to help you with your symptoms of nausea. Please complete your antibiotics. Please make sure you make an appointment to see your doctor in 1 to 2 days to be reevaluated. The following information is given to patients seen in the emergency department who are being discharged to home. This information is to outline your options for follow-up care. We provide all patients seen in our emergency department with a follow-up referral. The need for follow-up, as well as the timing and circumstances, are variable depending upon the specifics of your emergency department visit. If you don't have a primary care physician on staff, we will provide you with a referral. We always advise you to contact your personal physician following an emergency department visit to inform them of the circumstance of the visit and for follow-up with them and/or the need for any referrals to a consulting specialist. The emergency department will also refer you to a specialist when appropriate. This referral assures that you have the opportunity for follow-up care with a specialist. All of these measure are taken in an effort to provide you with optimal care, which includes your follow-up. Under all circumstances we always encourage you to contact your private physician who remains a resource for coordinating your care. When calling for follow-up care, please make the office aware that this follow-up is from your recent emergency room visit. If for any reason you are refused follow-up, please contact the [facility] Emergency Department at and asked to speak to the emergency department charge nurse. Sepsis Event Note (ED) - Evaluation Sepsis Screening Result: No Definite Risk - Focused Exam Vital Signs: Vital Signs Temp Pulse Resp BP Pulse Ox 09/08/19 01:16 86 22 H 138/98 H 95 09/07/19 23:46 84 21 H 116/77 95 09/07/19 23:12 99.3 F 92 16 130/97 H 94 L - My Orders Last 24 Hours: My Active Orders 09/07/19 23:21 CULTURE BLOOD [BC] Stat 09/07/19 23:33 Sodium Chloride 0.9% [Saline Flush] 10 ml FLUSH ASDIRECTED PRN Sodium Chloride 0.9% [Saline Flush] 2.5 ml FLUSH ASDIRECTED PRN Saline Lock Insert [OM.PC] Stat 09/07/19 23:36 EKG Documentation Completion [RC] STAT 09/07/19 23:39 Blood Culture x2 Reflex Set [OM.PC] Stat 09/07/19 23:54 CULTURE BLOOD [BC] Stat - Assessment/Plan Last 24 Hours: My Active Orders 09/07/19 23:21 CULTURE BLOOD [BC] Stat 09/07/19 23:33 Sodium Chloride 0.9% [Saline Flush] 10 ml FLUSH ASDIRECTED PRN Sodium Chloride 0.9% [Saline Flush] 2.5 ml FLUSH ASDIRECTED PRN Saline Lock Insert [OM.PC] Stat 09/07/19 23:36 EKG Documentation Completion [RC] STAT 09/07/19 23:39 Blood Culture x2 Reflex Set [OM.PC] Stat 09/07/19 23:54 CULTURE BLOOD [BC] Stat
[2019-09-08] MEDS ORDERED: Azithromycin 250 MG Tab PO ONE (01:49)
== END 2019-09-08 02:04 | disposition home or self-care (01) ==
LOC: MW.ED 23:10
DX: J18.9 Pneumonia, unspecified organism (principal); B34.9 Viral infection, unspecified; E78.00 Pure hypercholesterolemia, unspecified; I10 Essential (primary) hypertension; Z79.899 Other long term (current) drug therapy; F41.9 Anxiety disorder, unspecified
CPT/HCPCS: 36415; 71045; 74177; 80053; 81001; 83605; 83690; 84484; 85025; 87040; 93005; 96374; 96375; 99284; A9270; J1170; J2405; J7030; Q9967; 99283

== ENCOUNTER 2019-09-10 14:24 | Inpatient (IN) | payer OTHER ==
[2019-09-10] MEDS ORDERED: Sodium Chloride 0.9% 10 ML Syringe FLUSH PRN ×2 (14:34→14:35)
[2019-09-10] MEDS ORDERED: Sodium Chloride 0.9% 2.5 ML Syringe FLUSH PRN ×2 (14:34→14:35)
[2019-09-10] MEDS ORDERED: Acetaminophen 500 MG Tab PO ONE (14:35)
--- NOTE | 2019-09-10 14:40 | EDM.PDOC ---
ED HPI GENERAL MEDICAL PROBLEM - General Stated Complaint: FEVER;PNEUMONIA Time Seen by Provider: 09/10/19 14:34 Source of Information: Reports: Patient, EMS, Old Records History Limitations: Reports: No Limitations - History of Present Illness INITIAL COMMENTS - FREE TEXT/NARRATIVE: 48-year-old male with a past medical history of chronic pancreatitis, status post cholecystectomy, status post appendectomy, diverticulosis, hypertension presenting with shortness of breath, fever, malaise. Seen in the emergency department most recently on 09/07/2019 for chest discomfort and shortness of breath. At that visit he had had a cough for approximately 1 week's time. He had negative coronavirus testing prior to this emergency department visit. CT imaging of the abdomen/pelvis was concerning for diverticulosis without diverticulitis, there were some patchy and linear areas of consolidation within the lung bases that were thought to be atelectasis with a trace right pleural effusion, also noted nonobstructing nephrolithiasis. There is some concern for pneumonia, so the patient was started on a azithromycin. Today, the patient called 911 because he was feeling more short of breath than before. He was febrile at home to 102.2 p.o. When paramedics arrived, he was hypoxic to the low 80s. Paramedics placed him on high flow oxygen via nonrebreather mask. Here in the emergency room, the patient complains of feeling unwell, fever, and shortness of breath with intermittent cough. Reports intermittent abdominal pain but none right now. Denies headache, neck pain, chest discomfort, hemoptysis, vomiting or diarrhea, GI bleeding, or recent known COVID exposure. ROS: A 10-point review of systems was negative, except as noted in the HPI (or in the ROS section of this note). Past medical history: Reviewed, no additional pertinent history. Surgical history: Reviewed in system, no additional pertinent history. Social history: Reviewed in system, no additional pertinent history. Family history: Reviewed in system, no additional pertinent history. PHYSICAL EXAM Vital signs reviewed. Nursing notes reviewed. Constitutional: Awake, alert, appears ill. Head: Normocephalic, atraumatic. Eyes: EOMI, conjunctiva normal, no discharge, no scleral icterus. Ears, Nose, Throat: External ears and nose normal, moist oral mucosa. Cardiovascular: Tachycardic, 2+ radial pulse, capillary refill less than 2 seconds. Pulmonary: 4-5 word sentences with increased work of breathing. No accessory muscle use. Diffuse wheezes throughout. Abdomen/GI: Obese, soft, nontender, nondistended, no guarding or rigidity, no masses. Musculoskeletal: No deformities. Integumentary: Appropriate color for ethnicity, warm, dry, no pallor or jaundice, no rash. Neurologic: Alert, answering questions appropriately, normal speech, no facial droop, moving all extremities well. Psychiatric: Appropriate mood and affect, normal thought process. generalized Pain Score (Numeric/FACES): 4 - Related Data Allergies Allergy/AdvReac Type Severity Reaction Status Date / Time No Known Allergies Allergy Verified 09/10/19 14:42 Home Meds: Home Meds Celecoxib [CeleBREX] 200 mg PO DAILY 05/13/19 [History] Escitalopram [Lexapro] 10 mg PO DAILY 05/13/19 [History] Tamsulosin [Flomax] 0.4 mg PO BEDTIME 05/13/19 [History] atorvaSTATin [Lipitor] 20 mg PO DAILY 05/13/19 [History] lisinopriL [Zestril] 20 mg PO DAILY 05/13/19 [History] Azithromycin [Zithromax] 250 mg PO DAILY #4 tablet 09/08/19 [Rx] Ondansetron [Zofran ODT] 4 mg PO Q6H PRN #12 tab.dis 09/08/19 [Rx] Past Medical History HEENT History: Reports: Impaired Vision, Other (See Below) Other HEENT History: wears glasses Cardiovascular History: Reports: High Cholesterol, Hypertension Respiratory History: Reports: Sleep Apnea, Other (See Below) Other Respiratory History: on cpap Gastrointestinal History: Reports: None Genitourinary History: Reports: Prostate Disorder, Renal Calculus Musculoskeletal History: Reports: None Neurological History: Reports: Migraines Psychiatric History: Reports: Anxiety - Infectious Disease History Infectious Disease History: Reports: Chicken Pox - Past Surgical History HEENT Surgical History: Reports: None Cardiovascular Surgical History: Reports: None Respiratory Surgical History: Reports: None GI Surgical History: Reports: Appendectomy, Cholecystectomy, Hernia Repair/Other Male Surgical History: Reports: Kidney Stone Extraction Neurological Surgical History: Reports: None Musculoskeletal Surgical History: Reports: Other (See Below) Other Musculoskeletal Surgeries/Procedures:: Knee Scope Social & Family History - Family History Family Medical History: Noncontributory - Caffeine Use Caffeine Use: Reports: Tea ED ROS GENERAL - Review of Systems Review Of Systems: See Below ED EXAM, GENERAL - Physical Exam Exam: See Below EKG INTERPRETATION EKG Interpretation Comments: 12-Lead ECG Interpretation Acquired: 2:48 PM Rhythm: Sinus tachycardia Rate: 109/min [place]: Normal Intervals: Normal Ectopy: None RV Strain: No obvious RV strain pattern. Q waves in lead III, T wave inversions in lead III, not seen elsewhere Course - Vital Signs Text/Narrative:: Immediately roomed upon arrival. Call for BiPAP due to respiratory distress. IV access was established and labs were sent. Noted to be febrile and was hypoxic for paramedics. Given Tylenol for fever. CBC shows a mild leukocytosis. INR and lactate are normal. Venous blood gas shows mildly low PO2. Chemistry panel shows stable creatinine elevation, negative troponin. Lipase is within normal limits. Coron avirus testing is negative. Chest x-ray is concerning for pneumonia. Sepsis fluid bolus not indicated as the patient was not hypotensive and lactate was not greater than 4.0. Blood culture sent, given IV vancomycin and cefepime. Respiratory status improved on BiPAP, no indication for intubation, patient appears to be breathing easier. We will plan to admit to the intensive care unit for ongoing work-up and treatment of severe sepsis due to pneumonia and acute hypoxemic respiratory failure. I spoke with the hospitalist Dr. Delmar Guzmán who agrees to admit. Last Recorded V/S: Last Vital Signs Temp 37.5 C 09/10/19 16:15 Pulse 90 09/10/19 16:25 Resp 17 09/10/19 16:25 BP 105/71 09/10/19 16:25 Pulse Ox 96 09/10/19 16:25 - Orders/Labs/Meds Orders: Active Orders 24 hr Category Date Time Status Admission Status [Patient Status] [ADT] Stat ADT 09/10/19 16:03 Active BIPAP Adult [RT BiPAP/CPAP] [RC] ASDIRECTED Care 09/10/19 14:36 Active Cardiac Monitoring [RC] . DIRECTED Care 09/10/19 14:34 Active EKG Documentation Completion [RC] STAT Care 09/10/19 14:35 Active Pulse Oximetry [RC] ASDIRECTED Care 09/10/19 14:34 Active CULTURE BLOOD [BC] Stat Lab 09/10/19 14:45 Received CULTURE BLOOD [BC] Stat Lab 09/10/19 14:56 Received UA W/MICROSCOPIC [URIN] Stat Lab 09/10/19 14:35 Ordered Sodium Chloride 0.9% [Saline Flush] Med 09/10/19 14:35 Active 10 ml FLUSH ASDIRECTED PRN Sodium Chloride 0.9% [Saline Flush] Med 09/10/19 14:35 Active 2.5 ml FLUSH ASDIRECTED PRN Vancomycin 1.75 gm Med 09/10/19 15:45 Active Sodium Chloride 0.9% [Normal Saline] 500 ml IV ONETIME Blood Culture x2 Reflex Set [OM.PC] Stat Ot 09/10/19 14:35 Ordered Saline Lock Insert [OM.PC] Stat Ot 09/10/19 14:34 Ordered Saline Lock Insert [OM.PC] Stat Ot 09/10/19 14:35 Ordered Severe Sepsis Onset Time [OM.PC] Stat Ot 09/10/19 14:35 Ordered Medication Orders Vancomycin HCl 1.75 gm/ Sodium (Chloride) 500 mls @ 250 mls/hr IV ONETIME LATRICE Last Admin: 09/10/19 16:15 Dose: 250 mls/hr Documented by: AMANDA Sodium Chloride (Saline Flush) 10 ml FLUSH ASDIRECTED PRN PRN Reason: Keep Vein Open Last Admin: 09/10/19 14:56 Dose: 10 ml Documented by: [email or web address] Sodium Chloride (Saline Flush) 2.5 ml FLUSH ASDIRECTED PRN PRN Reason: Keep Vein Open Last Admin: 09/10/19 14:57 Dose: 2.5 ml Documented by: [email or web address] Labs: Laboratory Tests 09/10/19 09/10/19 09/10/19 Range/Units 14:50 14:56 14:56 WBC 11.18 H (4.0-11.0) K/uL RBC 4.60 (4.50-5.90) M/uL Hgb 13.7 (13.0-17.0) g/dL Hct 40.7 (38.0-50.0) % MCV 88.5 (80.0-98.0) fL MCH 29.8 (27.0-32.0) pg MCHC 33.7 (31.0-37.0) g/dL RDW Std Deviation 41.9 (28.0-62.0) fl RDW Coeff of Chris 13 (11.0-15.0) % Plt Count 268 (150-400) K/uL MPV 8.90 (7.40-12.00) fL Neut % (Auto) 82.8 H (48.0-80.0) % Lymph % (Auto) 9.2 L (16.0-40.0) % Rock % (Auto) 7.9 (0.0-15.0) % Eos % (Auto) 0.0 (0.0-7.0) % Baso % (Auto) 0.1 (0.0-1.5) % Neut # (Auto) 9.3 H (1.4-5.7) K/uL Lymph # (Auto) 1.0 (0.6-2.4) K/uL Rock # (Auto) 0.9 H (0.0-0.8) K/uL Eos # (Auto) 0.0 (0.0-0.7) K/uL Baso # (Auto) 0.0 (0.0-0.1) K/uL Nucleated RBC % 0.0 /100WBC Nucleated RBCs # 0 K/uL INR 1.04 VBG pH 7.44 H (7.31-7.41) VBG pCO2 40 (35-45) mmHG VBG pO2 24 L (30-40) mmHG VBG HCO3 27 (22-30) mEq/L VBG Total CO2 25 L (41-51) mmol/L VBG Base Excess 2.9 (-3.0-3.0) Lactate (0.20-2.00) mmol/L Sodium (136-148) mmol/L Potassium (3.5-5.1) mmol/L Chloride (98-107) mmol/L Carbon Dioxide (21.0-32.0) mmol/L BUN (7.0-18.0) mg/dL Creatinine (0.8-1.3) mg/dL Est Cr Clr Drug Dosing mL/min Estimated GFR (MDRD) ml/min Glucose (74-106) mg/dL Calcium (8.5-10.1) mg/dL Total Bilirubin (0.2-1.0) mg/dL AST (15-37) IU/L ALT (14-63) IU/L Alkaline Phosphatase (46-116) U/L Troponin I (0.000-0.056) ng/mL Total Protein (6.4-8.2) g/dL Albumin (3.4-5.0) g/dL Globulin (2.6-4.0) g/dL Albumin/Globulin Ratio (0.9-1.6) Lipase (73-393) U/L COVID-19 (MARCUS) (NEGATIVE) 09/10/19 09/10/19 09/10/19 Range/Units 14:56 14:56 15:00 WBC (4.0-11.0) K/uL RBC (4.50-5.90) M/uL Hgb (13.0-17.0) g/dL Hct (38.0-50.0) % MCV (80.0-98.0) fL MCH (27.0-32.0) pg MCHC (31.0-37.0) g/dL RDW Std Deviation (28.0-62.0) fl RDW Coeff of Chris (11.0-15.0) % Plt Count (150-400) K/uL MPV (7.40-12.00) fL Neut % (Auto) (48.0-80.0) % Lymph % (Auto) (16.0-40.0) % Rock % (Auto) (0.0-15.0) % Eos % (Auto) (0.0-7.0) % Baso % (Auto) (0.0-1.5) % Neut # (Auto) (1.4-5.7) K/uL Lymph # (Auto) (0.6-2.4) K/uL Rock # (Auto) (0.0-0.8) K/uL Eos # (Auto) (0.0-0.7) K/uL Baso # (Auto) (0.0-0.1) K/uL Nucleated RBC % /100WBC Nucleated RBCs # K/uL INR VBG pH (7.31-7.41) VBG pCO2 (35-45) mmHG VBG pO2 (30-40) mmHG VBG HCO3 (22-30) mEq/L VBG Total CO2 (41-51) mmol/L VBG Base Excess (-3.0-3.0) Lactate 1.5 (0.20-2.00) mmol/L Sodium 137 (136-148) mmol/L Potassium 3.8 (3.5-5.1) mmol/L Chloride 100 (98-107) mmol/L Carbon Dioxide 25.8 (21.0-32.0) mmol/L BUN 18 (7.0-18.0) mg/dL Creatinine 1.4 H (0.8-1.3) mg/dL Est Cr Clr Drug Dosing 65.90 mL/min Estimated GFR (MDRD) 53.9 ml/min Glucose 107 H (74-106) mg/dL Calcium 8.1 L (8.5-10.1) mg/dL Total Bilirubin 1.1 H (0.2-1.0) mg/dL AST 36 (15-37) IU/L ALT 42 (14-63) IU/L Alkaline Phosphatase 109 (46-116) U/L Troponin I < 0.050 (0.000-0.056) ng/mL Total Protein 7.9 (6.4-8.2) g/dL Albumin 3.3 L (3.4-5.0) g/dL Globulin 4.6 H (2.6-4.0) g/dL Albumin/Globulin Ratio 0.7 L (0.9-1.6) Lipase 142 (73-393) U/L COVID-19 (MARCUS) NEGATIVE (NEGATIVE) Meds: Medications Generic Name Dose Route Start Last Admin Trade Name Freq PRN Reason Stop Dose Admin Vancomycin HCl 1.75 gm/ Sodium 500 mls @ 250 mls/hr 09/10/19 15:45 09/10/19 16:15 Chloride IV 250 mls/hr ONETIME LATRICE Administration Sodium Chloride 10 ml 09/10/19 14:35 09/10/19 14:56 Saline Flush FLUSH 10 ml ASDIRECTED PRN Administration Keep Vein Open Sodium Chloride 2.5 ml 09/10/19 14:35 09/10/19 14:57 Saline Flush FLUSH 2.5 ml ASDIRECTED PRN Administration Keep Vein Open Discontinued Medications Generic Name Dose Route Start Last Admin Trade Name Freq PRN Reason Stop Dose Admin Acetaminophen 1,000 mg 09/10/19 14:35 09/10/19 14:44 Tylenol Extra Strength PO 09/10/19 14:36 1,000 mg ONETIME ONE Administration Cefepime HCl 2 gm/ Premix 50 mls @ 100 mls/hr 09/10/19 15:29 09/10/19 16:24 IV 09/10/19 15:58 Not Given ONETIME ONE Cefepime HCl 2 gm/ Premix 50 mls @ 100 mls/hr 09/10/19 16:15 09/10/19 16:23 IV 09/10/19 16:44 100 mls/hr ONETIME ONE Administration Ibuprofen 400 mg 09/10/19 15:53 09/10/19 16:15 Motrin PO 09/10/19 15:54 400 mg ONETIME ONE Administration Sodium Chloride 10 ml 09/10/19 14:34 Saline Flush FLUSH ASDIRECTED PRN Keep Vein Open Sodium Chloride 2.5 ml 09/10/19 14:34 Saline Flush FLUSH ASDIRECTED PRN Keep Vein Open Vancomycin HCl 1 dose 09/10/19 15:29 09/10/19 16:23 Pharmacy To Dose - Vancomycin .XX 09/10/19 15:30 Not Given ONETIME ONE Departure - Departure Time of Disposition: 16:00 Disposition: Admitted As Inpatient 65 Condition: Good Clinical Impression: Severe sepsis - Discharge Information Referrals: PCP,None [Primary Care Provider] - Sepsis Event Note (ED) - Focused Exam Vital Signs: Vital Signs Temp Temp Pulse Resp BP Pulse Ox 09/10/19 16:25 90 17 105/71 96 09/10/19 16:15 37.5 C 09/10/19 15:14 37.5 C 09/10/19 14:44 39.3 C H 09/10/19 14:38 39.3 C H 110 H 30 H 116/77 97 - My Orders Last 24 Hours: My Active Orders 09/10/19 14:34 Cardiac Monitoring [RC] . DIRECTED Pulse Oximetry [RC] ASDIRECTED Saline Lock Insert [OM.PC] Stat 09/10/19 14:35 EKG Documentation Completion [RC] STAT UA W/MICROSCOPIC [URIN] Stat Sodium Chloride 0.9% [Saline Flush] 10 ml FLUSH ASDIRECTED PRN Sodium Chloride 0.9% [Saline Flush] 2.5 ml FLUSH ASDIRECTED PRN Blood Culture x2 Reflex Set [OM.PC] Stat Saline Lock Insert [OM.PC] Stat Severe Sepsis Onset Time [OM.PC] Stat 09/10/19 14:36 BIPAP Adult [RT BiPAP/CPAP] [RC] ASDIRECTED 09/10/19 14:45 CULTURE BLOOD [BC] Stat 09/10/19 14:56 CULTURE BLOOD [BC] Stat 09/10/19 15:45 Vancomycin 1.75 gm Sodium Chloride 0.9% [Normal Saline] 500 ml IV ONETIME 09/10/19 16:03 Admission Status [Patient Status] [ADT] Stat - Assessment/Plan Last 24 Hours: My Active Orders 09/10/19 14:34 Cardiac Monitoring [RC] . DIRECTED Pulse Oximetry [RC] ASDIRECTED Saline Lock Insert [OM.PC] Stat 09/10/19 14:35 EKG Documentation Completion [RC] STAT UA W/MICROSCOPIC [URIN] Stat Sodium Chloride 0.9% [Saline Flush] 10 ml FLUSH ASDIRECTED PRN Sodium Chloride 0.9% [Saline Flush] 2.5 ml FLUSH ASDIRECTED PRN Blood Culture x2 Reflex Set [OM.PC] Stat Saline Lock Insert [OM.PC] Stat Severe Sepsis Onset Time [OM.PC] Stat 09/10/19 14:36 BIPAP Adult [RT BiPAP/CPAP] [RC] ASDIRECTED 09/10/19 14:45 CULTURE BLOOD [BC] Stat 09/10/19 14:56 CULTURE BLOOD [BC] Stat 09/10/19 15:45 Vancomycin 1.75 gm Sodium Chloride 0.9% [Normal Saline] 500 ml IV ONETIME 09/10/19 16:03 Admission Status [Patient Status] [ADT] Stat
--- NOTE | 2019-09-10 15:20 | CR ---
Chest: Portable view of the chest was obtained. Comparison: Prior chest x-ray of 09/08/19. Limited inspiratory effort is seen. Areas of atelectasis within the left mid lung and right lower lung are seen. Difficult to exclude an area of pneumonia within the left midlung. Heart size and mediastinum are within normal limits for portable technique. Bony structures are grossly intact. Impression: 1. Poor inspiratory effort. 2. Areas of atelectasis as noted above. 3. As mentioned above, difficult to exclude area of pneumonia within the left lung if patient has correlating symptoms. Diagnostic code #3 This report was dictated in MDT
[2019-09-10] MEDS ORDERED: Cefepime 2 GM in Premix Bag 1 BAG IV ONE ×2 (15:29→16:15)
[2019-09-10 15:43] LABS: BLOOD UREA NITROGEN,BUN 18 mg/dL (7.0-18.0); CARBON DIOXIDE,CO2 25.8 mmol/L (21.0-32.0); CHLORIDE,CL 100 mmol/L (98-107); GLUCOSE RANDOM 107 mg/dL (74-106); LIPASE 142 U/L (73-393); POTASSIUM,K 3.8 mmol/L (3.5-5.1); SODIUM,NA 137 mmol/L (136-148)
[2019-09-10] MEDS ORDERED: Vancomycin 1.75 GM in Sodium Chloride 0.9% 500 ML IV SCH (15:45)
[2019-09-10] MEDS ORDERED: Ibuprofen 400 MG Tab PO ONE (15:53)
--- NOTE | 2019-09-10 16:52 | PCM.HP.2 ---
<Mick Martin M - Last Filed: 09/10/19 18:22> H&P History of Present Illness - General Date of Service: 09/10/19 Admit Problem/Dx: Admission Diagnosis/Problem Admission Diagnosis/Problem Severe sepsis Source of Information: Patient History Limitations: Reports: Other (on BiPAP machine) - History of Present Illness Initial Comments - Free Text/Narative: 48-year-old male presents with complaints of shortness of breath and fever for the past few days. He has a PMH of HTN, chronic pancreatitis and sleep apnea on home CPAP. Patient reports that his shortness of breath got a lot worse this morning which prompted him to call EMS. Upon EMS arrival, patient was started on supplemental oxygen and transferred to [facility] ER. Of note, patient reports being seen in the ED a few days ago, diagnosed with pneumonia and started on azithromycin. Patient reports feeling fatigued, sore throat, cough and nausea. He denies any chest pain, abdominal pain, blood in stool, blood in urine, numbness or tingling in extremities. In the ER, VBG pH 7.44, pCO2: 40, pO2: 24 and HCO3: 27. WBC count 11, creatinine 1.4, COVID-19 negative and troponin negative. CXR showed left mid lung pneumonia. Blood cultures obtained. Patient given dose IV cefepime and vancomycin. Patient admitted for further evaluation and treatment. generalized Pain Score (Numeric/FACES): 4 - Related Data Allergies/Adverse Reactions: Allergies Allergy/AdvReac Type Severity Reaction Status Date / Time No Known Allergies Allergy Verified 09/10/19 14:42 Home Medications: Home Meds Celecoxib [CeleBREX] 200 mg PO DAILY 05/13/19 [History] Escitalopram [Lexapro] 10 mg PO DAILY 05/13/19 [History] Tamsulosin [Flomax] 0.4 mg PO BEDTIME 05/13/19 [History] atorvaSTATin [Lipitor] 20 mg PO DAILY 05/13/19 [History] lisinopriL [Zestril] 20 mg PO DAILY 05/13/19 [History] Azithromycin [Zithromax] 250 mg PO DAILY #4 tablet 09/08/19 [Rx] Ondansetron [Zofran ODT] 4 mg PO Q6H PRN #12 tab.dis 09/08/19 [Rx] Past Medical History HEENT History: Reports: Impaired Vision, Other (See Below) Other HEENT History: wears glasses Cardiovascular History: Reports: High Cholesterol, Hypertension Respiratory History: Reports: Sleep Apnea, Other (See Below) Other Respiratory History: on cpap Gastrointestinal History: Reports: None Genitourinary History: Reports: Prostate Disorder, Renal Calculus Musculoskeletal History: Reports: None Neurological History: Reports: Migraines Psychiatric History: Reports: Anxiety - Infectious Disease History Infectious Disease History: Reports: Chicken Pox - Past Surgical History HEENT Surgical History: Reports: None Cardiovascular Surgical History: Reports: None Respiratory Surgical History: Reports: None GI Surgical History: Reports: Appendectomy, Cholecystectomy, Hernia Repair/Other Male Surgical History: Reports: Kidney Stone Extraction Neurological Surgical History: Reports: None Musculoskeletal Surgical History: Reports: Other (See Below) Other Musculoskeletal Surgeries/Procedures:: Knee Scope Social & Family History - Family History Family Medical History: Noncontributory - Caffeine Use Caffeine Use: Reports: Tea H&P Review of Systems - Review of Systems: Review Of Systems: Comprehensive ROS is negative, except as noted in HPI. Exam - Exam Exam: See Below - Vital Signs Vital Signs: Last Vital Signs Temp 37.5 C 09/10/19 16:15 Pulse 90 09/10/19 16:25 Resp 17 09/10/19 16:25 BP 105/71 09/10/19 16:25 Pulse Ox 96 09/10/19 16:25 Weight: 117.934 kg - Exam General: Alert, Oriented, Cooperative, Other (fatigued) HEENT: Conjunctiva Clear, EOMI, Pupils Equal Neck: Supple, Trachea Midline Lungs: Normal Respiratory Effort, Other (wheezes b/l, BiPAP mask on) Cardiovascular: Regular Rhythm, Tachycardia GI/Abdominal Exam: Normal Bowel Sounds, Soft, Non-Tender, No Distention Extremities: Normal Inspection, No Pedal Edema Peripheral Pulses: 2+: Radial (L), Radial (R) Skin: Warm, Dry, Intact Neurological: Cranial Nerves Intact, Strength Equal Bilateral, Normal Speech, Normal Tone Neuro Extensive - Mental Status: Alert, Oriented x3, Normal Mood/Affect Psychiatric: Alert, Normal Affect, Normal Mood - Patient Data Lab Results Last 24 hrs: Laboratory Results - last 24 hr 09/10/19 09/10/19 09/10/19 Range/Units 14:50 14:56 14:56 WBC 11.18 H (4.0-11.0) K/uL RBC 4.60 (4.50-5.90) M/uL Hgb 13.7 (13.0-17.0) g/dL Hct 40.7 (38.0-50.0) % MCV 88.5 (80.0-98.0) fL MCH 29.8 (27.0-32.0) pg MCHC 33.7 (31.0-37.0) g/dL RDW Std Deviation 41.9 (28.0-62.0) fl RDW Coeff of Chris 13 (11.0-15.0) % Plt Count 268 (150-400) K/uL MPV 8.90 (7.40-12.00) fL Neut % (Auto) 82.8 H (48.0-80.0) % Lymph % (Auto) 9.2 L (16.0-40.0) % [place] % (Auto) 7.9 (0.0-15.0) % Eos % (Auto) 0.0 (0.0-7.0) % Baso % (Auto) 0.1 (0.0-1.5) % Neut # (Auto) 9.3 H (1.4-5.7) K/uL Lymph # (Auto) 1.0 (0.6-2.4) K/uL [place] # (Auto) 0.9 H (0.0-0.8) K/uL Eos # (Auto) 0.0 (0.0-0.7) K/uL Baso # (Auto) 0.0 (0.0-0.1) K/uL Nucleated RBC % 0.0 /100WBC Nucleated RBCs # 0 K/uL INR 1.04 VBG pH 7.44 H (7.31-7.41) VBG pCO2 40 (35-45) mmHG VBG pO2 24 L (30-40) mmHG VBG HCO3 27 (22-30) mEq/L VBG Total CO2 25 L (41-51) mmol/L VBG Base Excess 2.9 (-3.0-3.0) Lactate (0.20-2.00) mmol/L Sodium (136-148) mmol/L Potassium (3.5-5.1) mmol/L Chloride (98-107) mmol/L Carbon Dioxide (21.0-32.0) mmol/L BUN (7.0-18.0) mg/dL Creatinine (0.8-1.3) mg/dL Est Cr Clr Drug Dosing mL/min Estimated GFR (MDRD) ml/min Glucose (74-106) mg/dL Calcium (8.5-10.1) mg/dL Total Bilirubin (0.2-1.0) mg/dL AST (15-37) IU/L ALT (14-63) IU/L Alkaline Phosphatase (46-116) U/L Troponin I (0.000-0.056) ng/mL Total Protein (6.4-8.2) g/dL Albumin (3.4-5.0) g/dL Globulin (2.6-4.0) g/dL Albumin/Globulin Ratio (0.9-1.6) Lipase (73-393) U/L COVID-19 (MARCUS) (NEGATIVE) 09/10/19 09/10/19 09/10/19 Range/Units 14:56 14:56 15:00 WBC (4.0-11.0) K/uL RBC (4.50-5.90) M/uL Hgb (13.0-17.0) g/dL Hct (38.0-50.0) % MCV (80.0-98.0) fL MCH (27.0-32.0) pg MCHC (31.0-37.0) g/dL RDW Std Deviation (28.0-62.0) fl RDW Coeff of Chris (11.0-15.0) % Plt Count (150-400) K/uL MPV (7.40-12.00) fL Neut % (Auto) (48.0-80.0) % Lymph % (Auto) (16.0-40.0) % [place] % (Auto) (0.0-15.0) % Eos % (Auto) (0.0-7.0) % Baso % (Auto) (0.0-1.5) % Neut # (Auto) (1.4-5.7) K/uL Lymph # (Auto) (0.6-2.4) K/uL [place] # (Auto) (0.0-0.8) K/uL Eos # (Auto) (0.0-0.7) K/uL Baso # (Auto) (0.0-0.1) K/uL Nucleated RBC % /100WBC Nucleated RBCs # K/uL INR VBG pH (7.31-7.41) VBG pCO2 (35-45) mmHG VBG pO2 (30-40) mmHG VBG HCO3 (22-30) mEq/L VBG Total CO2 (41-51) mmol/L VBG Base Excess (-3.0-3.0) Lactate 1.5 (0.20-2.00) mmol/L Sodium 137 (136-148) mmol/L Potassium 3.8 (3.5-5.1) mmol/L Chloride 100 (98-107) mmol/L Carbon Dioxide 25.8 (21.0-32.0) mmol/L BUN 18 (7.0-18.0) mg/dL Creatinine 1.4 H (0.8-1.3) mg/dL Est Cr Clr Drug Dosing 65.90 mL/min Estimated GFR (MDRD) 53.9 ml/min Glucose 107 H (74-106) mg/dL Calcium 8.1 L (8.5-10.1) mg/dL Total Bilirubin 1.1 H (0.2-1.0) mg/dL AST 36 (15-37) IU/L ALT 42 (14-63) IU/L Alkaline Phosphatase 109 (46-116) U/L Troponin I < 0.050 (0.000-0.056) ng/mL Total Protein 7.9 (6.4-8.2) g/dL Albumin 3.3 L (3.4-5.0) g/dL Globulin 4.6 H (2.6-4.0) g/dL Albumin/Globulin Ratio 0.7 L (0.9-1.6) Lipase 142 (73-393) U/L COVID-19 (MARCUS) NEGATIVE (NEGATIVE) Result Diagrams: 09/10/19 14:56 09/10/19 14:56 Sepsis Event Note - Evaluation Sepsis Screening Result: Possible Severe Sepsis Risk - Focused Exam Vital Signs: Vital Signs Temp Temp Pulse Resp BP Pulse Ox 09/10/19 16:25 90 17 105/71 96 09/10/19 16:15 37.5 C 09/10/19 15:14 37.5 C 09/10/19 14:44 39.3 C H 09/10/19 14:38 39.3 C H 110 H 30 H 116/77 97 Date Exam was Performed: 09/10/19 Time Exam was Performed: 18:22 Problem List Initiated/Reviewed/Updated: Yes Orders Last 24hrs: Active Orders 24 hr Category Date Time Status Admission Status [Patient Status] [ADT] Stat ADT 09/10/19 16:03 Active BIPAP Adult [RT BiPAP/CPAP] [RC] ASDIRECTED Care 09/10/19 14:36 Active Cardiac Monitoring [RC] . DIRECTED Care 09/10/19 14:34 Active EKG Documentation Completion [RC] STAT Care 09/10/19 14:35 Active Pulse Oximetry [RC] ASDIRECTED Care 09/10/19 14:34 Active CULTURE BLOOD [BC] Stat Lab 09/10/19 14:45 Received CULTURE BLOOD [BC] Stat Lab 09/10/19 14:56 Received UA W/MICROSCOPIC [URIN] Stat Lab 09/10/19 14:35 Ordered Sodium Chloride 0.9% [Saline Flush] Med 09/10/19 14:35 Active 10 ml FLUSH ASDIRECTED PRN Sodium Chloride 0.9% [Saline Flush] Med 09/10/19 14:35 Active 2.5 ml FLUSH ASDIRECTED PRN Vancomycin 1.75 gm Med 09/10/19 15:45 Active Sodium Chloride 0.9% [Normal Saline] 500 ml IV ONETIME Blood Culture x2 Reflex Set [OM.PC] Stat Oth 09/10/19 14:35 Ordered Saline Lock Insert [OM.PC] Stat Oth 09/10/19 14:34 Ordered Saline Lock Insert [OM.PC] Stat Oth 09/10/19 14:35 Ordered Severe Sepsis Onset Time [OM.PC] Stat Ot 09/10/19 14:35 Ordered Medication Orders Vancomycin HCl 1.75 gm/ Sodium (Chloride) 500 mls @ 250 mls/hr IV ONETIME LATRICE Last Admin: 09/10/19 16:15 Dose: 250 mls/hr Documented by: AMANDA Sodium Chloride (Saline Flush) 10 ml FLUSH ASDIRECTED PRN PRN Reason: Keep Vein Open Last Admin: 09/10/19 14:56 Dose: 10 ml Documented by: [id number] Sodium Chloride (Saline Flush) 2.5 ml FLUSH ASDIRECTED PRN PRN Reason: Keep Vein Open Last Admin: 09/10/19 14:57 Dose: 2.5 ml Documented by: [id number] Assessment/Plan Comment:: Assessment and Plan: 1. Acute hypoxic respiratory failure secondary to community-acquired pneumonia: - Admit to ICU. Consulted eICU and recommended to start patient on HHF NC. Will continue to monitor. 2. Sepsis secondary to community-acquired pneumonia: - Patient has leukocytosis, fever, tachycardia and increased RR. Vital signs are stable. Lactate normal. Blood culture obtained. Patient given dose IV vancomycin and cefepime in ER. Will give dose of IV levaquin and start IV NS maintenance fluids. Sputum culture pending. 3. Acute kidney injury: - IV NS maintenance fluids, will continue to monitor. 4. DVT prophylaxis: heparin. 5. Past medical history of HTN, chronic pancreatitis and sleep apnea: - Will continue home medications. <Delmar Guzmán - Last Filed: 09/10/19 19:43> H&P History of Present Illness - General Admit Problem/Dx: Admission Diagnosis/Problem Admission Diagnosis/Problem Severe sepsis Exam - Vital Signs Vital Signs: Last Vital Signs Temp 37.4 C 09/10/19 17:15 Pulse 90 09/10/19 17:41 Resp 17 09/10/19 17:41 BP 101/69 09/10/19 17:41 Pulse Ox 95 09/10/19 17:41 - Patient Data Lab Results Last 24 hrs: Laboratory Results - last 24 hr 09/10/19 09/10/19 09/10/19 Range/Units 14:50 14:56 14:56 WBC 11.18 H (4.0-11.0) K/uL RBC 4.60 (4.50-5.90) M/uL Hgb 13.7 (13.0-17.0) g/dL Hct 40.7 (38.0-50.0) % MCV 88.5 (80.0-98.0) fL MCH 29.8 (27.0-32.0) pg MCHC 33.7 (31.0-37.0) g/dL RDW Std Deviation 41.9 (28.0-62.0) fl RDW Coeff of Chris 13 (11.0-15.0) % Plt Count 268 (150-400) K/uL MPV 8.90 (7.40-12.00) fL Neut % (Auto) 82.8 H (48.0-80.0) % Lymph % (Auto) 9.2 L (16.0-40.0) % [place] % (Auto) 7.9 (0.0-15.0) % Eos % (Auto) 0.0 (0.0-7.0) % Baso % (Auto) 0.1 (0.0-1.5) % Neut # (Auto) 9.3 H (1.4-5.7) K/uL Lymph # (Auto) 1.0 (0.6-2.4) K/uL [place] # (Auto) 0.9 H (0.0-0.8) K/uL Eos # (Auto) 0.0 (0.0-0.7) K/uL Baso # (Auto) 0.0 (0.0-0.1) K/uL Nucleated RBC % 0.0 /100WBC Nucleated RBCs # 0 K/uL INR 1.04 VBG pH 7.44 H (7.31-7.41) VBG pCO2 40 (35-45) mmHG VBG pO2 24 L (30-40) mmHG VBG HCO3 27 (22-30) mEq/L VBG Total CO2 25 L (41-51) mmol/L VBG Base Excess 2.9 (-3.0-3.0) Lactate (0.20-2.00) mmol/L Sodium (136-148) mmol/L Potassium (3.5-5.1) mmol/L Chloride (98-107) mmol/L Carbon Dioxide (21.0-32.0) mmol/L BUN (7.0-18.0) mg/dL Creatinine (0.8-1.3) mg/dL Est Cr Clr Drug Dosing mL/min Estimated GFR (MDRD) ml/min Glucose (74-106) mg/dL Calcium (8.5-10.1) mg/dL Total Bilirubin (0.2-1.0) mg/dL AST (15-37) IU/L ALT (14-63) IU/L Alkaline Phosphatase (46-116) U/L Troponin I (0.000-0.056) ng/mL Total Protein (6.4-8.2) g/dL Albumin (3.4-5.0) g/dL Globulin (2.6-4.0) g/dL Albumin/Globulin Ratio (0.9-1.6) Lipase (73-393) U/L COVID-19 (MARCUS) (NEGATIVE) 09/10/19 09/10/19 09/10/19 Range/Units 14:56 14:56 15:00 WBC (4.0-11.0) K/uL RBC (4.50-5.90) M/uL Hgb (13.0-17.0) g/dL Hct (38.0-50.0) % MCV (80.0-98.0) fL MCH (27.0-32.0) pg MCHC (31.0-37.0) g/dL RDW Std Deviation (28.0-62.0) fl RDW Coeff of Chris (11.0-15.0) % Plt Count (150-400) K/uL MPV (7.40-12.00) fL Neut % (Auto) (48.0-80.0) % Lymph % (Auto) (16.0-40.0) % [place] % (Auto) (0.0-15.0) % Eos % (Auto) (0.0-7.0) % Baso % (Auto) (0.0-1.5) % Neut # (Auto) (1.4-5.7) K/uL Lymph # (Auto) (0.6-2.4) K/uL [place] # (Auto) (0.0-0.8) K/uL Eos # (Auto) (0.0-0.7) K/uL Baso # (Auto) (0.0-0.1) K/uL Nucleated RBC % /100WBC Nucleated RBCs # K/uL INR VBG pH (7.31-7.41) VBG pCO2 (35-45) mmHG VBG pO2 (30-40) mmHG VBG HCO3 (22-30) mEq/L VBG Total CO2 (41-51) mmol/L VBG Base Excess (-3.0-3.0) Lactate 1.5 (0.20-2.00) mmol/L Sodium 137 (136-148) mmol/L Potassium 3.8 (3.5-5.1) mmol/L Chloride 100 (98-107) mmol/L Carbon Dioxide 25.8 (21.0-32.0) mmol/L BUN 18 (7.0-18.0) mg/dL Creatinine 1.4 H (0.8-1.3) mg/dL Est Cr Clr Drug Dosing 65.90 mL/min Estimated GFR (MDRD) 53.9 ml/min Glucose 107 H (74-106) mg/dL Calcium 8.1 L (8.5-10.1) mg/dL Total Bilirubin 1.1 H (0.2-1.0) mg/dL AST 36 (15-37) IU/L ALT 42 (14-63) IU/L Alkaline Phosphatase 109 (46-116) U/L Troponin I < 0.050 (0.000-0.056) ng/mL Total Protein 7.9 (6.4-8.2) g/dL Albumin 3.3 L (3.4-5.0) g/dL Globulin 4.6 H (2.6-4.0) g/dL Albumin/Globulin Ratio 0.7 L (0.9-1.6) Lipase 142 (73-393) U/L COVID-19 (MARCUS) NEGATIVE (NEGATIVE) Result Diagrams: 09/10/19 14:56 09/10/19 14:56 Sepsis Event Note - Focused Exam Vital Signs: Vital Signs Temp Temp Pulse Resp BP Pulse Ox 09/10/19 17:41 90 17 101/69 95 09/10/19 17:15 37.4 C 09/10/19 16:25 90 17 105/71 96 09/10/19 16:15 37.5 C 09/10/19 15:14 37.5 C 09/10/19 14:44 39.3 C H 09/10/19 14:38 39.3 C H 110 H 30 H 116/77 97 Date Exam was Performed: 09/10/19 Time Exam was Performed: 19:43 Orders Last 24hrs: Active Orders 24 hr Category Date Time Status Admission Status [Patient Status] [ADT] Stat ADT 09/10/19 16:03 Active Cardiac Monitoring [RC] . DIRECTED Care 09/10/19 14:34 Active Oxygen Therapy [RC] PRN Care 09/10/19 17:17 Active Pulse Oximetry [RC] ASDIRECTED Care 09/10/19 14:34 Active RT BiPAP/CPAP [RC] ASDIRECTED Care 09/10/19 19:12 Active Up ad Tran [RC] ASDIRECTED Care 09/10/19 17:17 Active VTE/DVT Education [RC] PER UNIT ROUTINE Care 09/10/19 17:17 Active Vital Signs [RC] Q1H Care 09/10/19 17:17 Active Consult to Respiratory Therapy [Respiratory Care Assess Cons 09/10/19 17:20 Active and Treatment] [CONS] Routine Regular Diet [DIET] Diet 09/10/19 Lunch Active CBC WITH AUTO DIFF [HEME] AM Lab 09/11/19 05:11 Ordered COMPREHENSIVE METABOLIC PN,CMP [CHEM] AM Lab 09/11/19 05:11 Ordered CULTURE BLOOD [BC] Stat Lab 09/10/19 14:45 Received CULTURE BLOOD [BC] Stat Lab 09/10/19 14:56 Received CULTURE SPUTUM + SMEAR [RM] Urgent Lab 09/10/19 17:21 Ordered MRSA BY PCR [MREF] Urgent Lab 09/10/19 18:52 Ordered STREP PNEUMONIAE ANTIGEN [MREF] Urgent Lab 09/10/19 18:52 Ordered UA W/MICROSCOPIC [URIN] Stat Lab 09/10/19 14:35 Ordered Acetaminophen [Tylenol] Med 09/10/19 17:17 Active 650 mg PO Q4H PRN Cefepime [Maxipime in D5W 2 GM/50 ML] 2 gm Med 09/11/19 00:30 Active Premix Bag 1 bag IV Q8H Escitalopram [Lexapro] Med 09/11/19 09:00 Active 10 mg PO DAILY Heparin Sodium Med 09/10/19 17:30 Active 5,000 units SUBCUT Q8H Levofloxacin/Dextrose 5%-Water [Levaquin in D5W 750 MG/ Med 09/10/19 17:30 Active 150 ML] 750 mg Premix Bag 1 bag IV Q24H Ondansetron [Zofran ODT] Med 09/10/19 17:17 Active 4 mg PO Q4H PRN Ondansetron [Zofran] Med 09/10/19 17:17 Active 4 mg IVPUSH Q4H PRN Sodium Chloride 0.9% [Normal Saline] 1,000 ml Med 09/10/19 17:30 Active IV STAT Sodium Chloride 0.9% [Saline Flush] [facility] 09/10/19 14:35 Active 10 ml FLUSH ASDIRECTED PRN Sodium Chloride 0.9% [Saline Flush] [facility] 09/10/19 14:35 Active 2.5 ml FLUSH ASDIRECTED PRN Blood Culture x2 Reflex Set [OM.PC] Stat [facility] 09/10/19 14:35 Ordered Saline Lock Insert [OM.PC] Stat [facility] 09/10/19 14:34 Ordered Saline Lock Insert [OM.PC] Stat [facility] 09/10/19 14:35 Ordered Severe Sepsis Onset Time [OM.PC] Stat [facility] 09/10/19 14:35 Ordered Resuscitation Status Routine Resus Stat 09/10/19 17:17 Ordered Medication Orders Acetaminophen (Tylenol) 650 mg PO Q4H PRN PRN Reason: Pain (Mild 1-3)/fever Escitalopram Oxalate (Lexapro) 10 mg PO DAILY [facility] Heparin Sodium (Porcine) (Heparin Sodium) 5,000 units SUBCUT Q8H [facility] Last Admin: 09/10/19 18:48 Dose: 5,000 units Documented by: ALYSON Sodium Chloride (Normal Saline) 1,000 mls @ 125 mls/hr IV STAT [facility] Last Admin: 09/10/19 18:36 Dose: 125 mls/hr Documented by: ALYSON Levofloxacin/Dextrose 750 mg/ (Premix) 150 mls @ 100 mls/hr IV Q24H [facility] Last Admin: 09/10/19 18:48 Dose: 100 mls/hr Documented by: ALYSON Cefepime HCl 2 gm/ Premix 50 mls @ 100 mls/hr IV Q8H [facility] Ondansetron HCl (Zofran Odt) 4 mg PO Q4H PRN PRN Reason: nausea, able to take PO Ondansetron HCl (Zofran) 4 mg IVPUSH Q4H PRN PRN Reason: Nausea Sodium Chloride (Saline Flush) 10 ml FLUSH ASDIRECTED PRN PRN Reason: Keep Vein Open Last Admin: 09/10/19 14:56 Dose: 10 ml Documented by: DEBORAH Sodium Chloride (Saline Flush) 2.5 ml FLUSH ASDIRECTED PRN PRN Reason: Keep Vein Open Last Admin: 09/10/19 14:57 Dose: 2.5 ml Documented by: DEBORAH - Free Text/Narrative Note: I have seen and evaluated the patient with the resident. I have discussed findings and treatment plan with the resident. I agree with the assessment and plan outlined in the following note.
[2019-09-10] MEDS ORDERED: Ondansetron 4 MG/2 ML SDV IVPUSH PRN (17:17)
[2019-09-10] MEDS ORDERED: Ondansetron 4 MG Tab.DIS PO PRN (17:17)
[2019-09-10] MEDS ORDERED: Heparin Sodium 5,000 Units/ML Vial SUBCUT SCH (17:30)
[2019-09-10] MEDS ORDERED: Levofloxacin/Dextrose 5%-Water 750 MG in Premix Bag 1 BAG IV SCH (17:30)
[2019-09-10] MEDS: Sodium Chloride 0.9% 1,000 ML IV SCH (18:36)
--- NOTE | 2019-09-10 19:30 | PN ---
[facility] Physician - Brief Progress [id number]/31/2020 18:33[facility] Cassidy Valladares [place] - WILLIS (REJIN) - WILLIS BONNIE MICHELEDate of Service 09/10/2019 18:33HPI/Events of Note eICU admission note 48-year-old male with past history of HTN, chronic pancreatitis and RUKHSANA o n CPAP who presented to the ER with shortness of breath and fever. Patient mentions over the last fe w days he has had progressively worsening dyspnea with associated fever, fatigue, sore throat, cough and nausea. In the ED he was noted to be febrile to 39.3, tachypneic and tachycardic along with requ iring supplemental oxygen. His initial lab work-up revealed leukocytosis along with an SHWETA. Initial imaging revealed possible left-sided pneumonia patient was started on IV fluids along with antibioti cs and admitted to the ICU for closer monitoring.Patient seen on camera, nasal cannula present and do es not appear to be in any acute distress at this time.-Vital signs reviewed. HR 86, BP 100/63, SPO2 92%Labs/EMR/imaging reviewedAcute hypoxic respiratory failure-Likely secondary to bacterial pneumoni a with failed outpatient therapy-Agree with current antibiotic regimen with vancomycin/cefepime/Levaq uin-Patient initially noted to be hypoxic without hypercapnia thus recommended heated high flow nasal cannula. Likely due to worsening dyspnea patient placed on BiPAP 10/5, FiO2 60% and obtaining TV 73 0s. We can assist with weaning as needed.-Recommend obtaining respiratory culture, MRSA nares, Legio tiago/strep urine. Blood cultures pending-Nebs as needed-COVID negativeAKI-Likely prerenal etiology in the setting of sepsis-Recommend continued trend of creatinine and strict I's and O's. If creatini ne is uptrending recommend renal imaging at that time.-Avoid nephro toxins and renally dose antibioti cs.DVT prophy-HeparinGI prophy- diet ordered, can start Pepcid if remains Bipap. Thank you for allowi ng us to participate in the care of this patient.Interventions Major-Acute renal failure - evaluation and management, Hypoxemia - evaluation and management, Infection - evaluation and management, Sepsis - evaluation and management
[2019-09-10] MEDS ORDERED: guaiFENesin 100 MG/5 ML Soln 10 ML UD Cup PO PRN (21:29)
[2019-09-10] MEDS: Benzocaine/Cetylpyridinium/Menthol Lozenge MUCMEM PRN (23:08)
[2019-09-10] MEDS: Cefepime 2 GM in Premix Bag 1 BAG IV SCH (23:57)
[2019-09-11] MEDS: Acetaminophen 325 MG Tab PO PRN ×3 (00:03→09:00)
[2019-09-11] MEDS ORDERED: fentaNYL 50 MCG/ML SDV IVPUSH ONE (02:12)
[2019-09-11] MEDS ORDERED: fentaNYL 100 MCG/2 ML SDV ONE (02:19)
[2019-09-11] MEDS: Sodium Chloride 0.9% 1,000 ML IV SCH ×2 (02:26→10:35)
[2019-09-11] MEDS: Heparin Sodium 5,000 Units/ML Vial SUBCUT SCH ×2 (04:06→12:30)
[2019-09-11 06:24] LABS: CARBON DIOXIDE,CO2 23.2 mmol/L (21.0-32.0); POTASSIUM,K 3.5 mmol/L (3.5-5.1)
[2019-09-11] MEDS: Cefepime 2 GM in Premix Bag 1 BAG IV SCH (07:40)
[2019-09-11] MEDS: Benzocaine/Cetylpyridinium/Menthol Lozenge MUCMEM PRN (08:59)
[2019-09-11] MEDS ORDERED: Tamsulosin 0.4 MG Cap.ER PO SCH ×2 (09:00→21:00)
[2019-09-11] MEDS ORDERED: Escitalopram 10 MG Tab PO SCH (09:00)
[2019-09-11] MEDS ORDERED: atorvaSTATin 20 MG Tab PO SCH (09:00)
--- NOTE | 2019-09-11 09:03 | PN ---
[facility] Physician - Brief Progress [id number]/01/2020 09:02[facility] Cassidy Valladares [place] [facility] - [place] BONNIE MICHELEHafsaDate of Service 09/11/2019 09:02HPI/Events of Note eICU Progress [id number] admitted for acute hypoxemic respiratory failure attributed to pneumoni a. History obtained primarily from review of EMR.Camera exam: Laying in bed. Vitals monitor reviewed. On BPAP 14/8 FiO2 50% with TV ~570-600 and RR of 29Labs: reviewedeICU Impression and Recommendations :No new recommendations at this timeAcute hypoxemic respiratory failure attributed to pneumoniaAs lo ginal admission ABG did not reveal hypercapnia, defer use of BPAP therapy in the setting to primary s ervice. Can consider transition to HFNCConsider intubation should work of breathing/respiratory rate increase and/or should patient be unable to tolerate BPAPContinue antibioticsDVT and GI prophylaxis a s appropriate.Thank you for allowing us to participate in the care of this patient.The above note tra nscribed with the assistance of dictation software. Please excuse any errors.Interventions Major-Resp iratory failure - evaluation and management
[2019-09-11] MEDS ORDERED: propofoL 100 ML ONE (10:20)
[2019-09-11] MEDS ORDERED: fentaNYL 100 MCG/2 ML SDV IVPUSH PRN (11:17)
[2019-09-11] MEDS ORDERED: Rocuronium 100 MG/10 ML Syringe IVPUSH ONE (11:19)
--- NOTE | 2019-09-11 11:19 | PCM.PRNOTE ---
- Free Text/Narrative Note: Anes NOte I was called to ICU for E Intubation for middle aged adult with worsening resp distress. A Rapid Intubation was performed with a video laryngoscope and a #8 ZET tube. Drugs; 100 mg propofol and 100 mg anectine at 1046. O2 sats remained at over 98% during the entire procedure. No vomit or other material in the mouth. Airway was clear. Tube secured a 23.5 cm at teetyh. BBS checked and equal. 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
[2019-09-11] MEDS ORDERED: Midazolam 1 MG/ML 2 ML SDV IV PRN (11:21)
[2019-09-11] MEDS ORDERED: Rocuronium 100 MG/10 ML Syringe IVPUSH PRN (11:23)
[2019-09-11] MEDS ORDERED: Midazolam 1 MG/ML 2 ML SDV ONE (11:28)
[2019-09-11] MEDS ORDERED: propofoL 100 ML IV SCH (11:30)
--- NOTE | 2019-09-11 11:38 | PCM.DCSUM1 ---
<Mick Martin M - Last Filed: 09/11/19 11:40> Discharge Summary - Hospital Course Free Text/Narrative:: 48-year-old male admitted for acute hypoxic respiratory failure secondary to community-acquired pneumonia. Patient has a PMH of HTN, BPH, chronic pancreattis and sleep apnea on home CPAP. On admission WBC 11, creatinine 1.4, lactate normal, CXR showed left mid-lung pneumonia and troponin negative. COVID19 test negative. Patient started on IV fluids, IV vancomycin, IV cefepime and IV levaquin. Blood cultures pending. Patient was started on HHF NC and BiPAP intermittently. Patient respiratory rate and oxygen demand continued to increase overnight and into this morning. This morning he noted that he was feeling very fatigued and felt that he could not keep up with his breathing. Patient was then intubated, propofol for sedation and IV fentanyl prn pain. [facility] in [place], [place] was contacted as patient intubated requiring ICU care and Dr. Montanez accepted patient. Patient transported in stable condition via flight. - Discharge Data Discharge Date: 09/11/19 Discharge Disposition: DC/Tfer to Acute Hospital 02 Condition: Fair - Referral to Home Health Primary Care Physician: PCP None - Patient Summary/Data Consults: Consultations 09/10/19 17:20 Consult to Respiratory Therapy [Respiratory Care Assess and Treatment] [CONS] Routine - Patient Instructions Diet: Usual Diet as Tolerated Activity: As Tolerated Notify Provider of: Fever, Increased Pain, Swelling and Redness, Drainage, Nausea and/or Vomiting - Discharge Plan *PRESCRIPTION DRUG MONITORING PROGRAM REVIEWED*: Not Applicable *COPY OF PRESCRIPTION DRUG MONITORING REPORT IN PATIENT DONALD: Not Applicable Home Medications: Home Meds Celecoxib [CeleBREX] 200 mg PO DAILY 05/13/19 [History] Escitalopram [Lexapro] 10 mg PO DAILY 05/13/19 [History] Tamsulosin [Flomax] 0.4 mg PO BEDTIME 05/13/19 [History] atorvaSTATin [Lipitor] 20 mg PO DAILY 05/13/19 [History] lisinopriL [Zestril] 20 mg PO DAILY 05/13/19 [History] Azithromycin [Zithromax] 250 mg PO DAILY #4 tablet 09/08/19 [Rx] Ondansetron [Zofran ODT] 4 mg PO Q6H PRN #12 tab.dis 09/08/19 [Rx] Oxygen Therapy Mode: Mechanical Ventilation Forms: ED Department Discharge Referrals: PCP,None [Primary Care Provider] - Humble Amado MD [Ordering Only Provider] - - Discharge Summary/Plan Comment DC Time >30 min.: No - Patient Data Vitals - Most Recent: Last Vital Signs Temp 37.7 C 09/11/19 09:00 Pulse 90 09/10/19 17:41 Resp 31 H 09/11/19 10:00 BP 114/72 09/11/19 10:00 Pulse Ox 94 L 09/11/19 10:00 Weight - Most Recent: 114.305 kg I&O - Last 24 hours: Intake & Output 09/10/19 09/11/19 09/11/19 22:59 06:59 14:59 Intake Total 500 240 Output Total 300 600 Balance 200 -360 Lab Results - Last 24 hrs: Laboratory Results - last 24 hr 09/10/19 09/10/19 09/10/19 Range/Units 14:50 14:56 14:56 WBC 11.18 H (4.0-11.0) K/uL RBC 4.60 (4.50-5.90) M/uL Hgb 13.7 (13.0-17.0) g/dL Hct 40.7 (38.0-50.0) % MCV 88.5 (80.0-98.0) fL MCH 29.8 (27.0-32.0) pg MCHC 33.7 (31.0-37.0) g/dL RDW Std Deviation 41.9 (28.0-62.0) fl RDW Coeff of Chris 13 (11.0-15.0) % Plt Count 268 (150-400) K/uL MPV 8.90 (7.40-12.00) fL Neut % (Auto) 82.8 H (48.0-80.0) % Lymph % (Auto) 9.2 L (16.0-40.0) % Bureau % (Auto) 7.9 (0.0-15.0) % Eos % (Auto) 0.0 (0.0-7.0) % Baso % (Auto) 0.1 (0.0-1.5) % Neut # (Auto) 9.3 H (1.4-5.7) K/uL Lymph # (Auto) 1.0 (0.6-2.4) K/uL Bureau # (Auto) 0.9 H (0.0-0.8) K/uL Eos # (Auto) 0.0 (0.0-0.7) K/uL Baso # (Auto) 0.0 (0.0-0.1) K/uL Nucleated RBC % 0.0 /100WBC Nucleated RBCs # 0 K/uL INR 1.04 ABG pH (7.35-7.45) ABG pCO2 (35-45) mmHG ABG pO2 (75-100) mmHG ABG HCO3 (22-26) mEq/L ABG Total CO2 ABG Base Excess (-2.0-2.0) VBG pH 7.44 H (7.31-7.41) VBG pCO2 40 (35-45) mmHG VBG pO2 24 L (30-40) mmHG VBG HCO3 27 (22-30) mEq/L VBG Total CO2 25 L (41-51) mmol/L VBG Base Excess 2.9 (-3.0-3.0) Lactate (0.20-2.00) mmol/L Sodium (136-148) mmol/L Potassium (3.5-5.1) mmol/L Chloride (98-107) mmol/L Carbon Dioxide (21.0-32.0) mmol/L BUN (7.0-18.0) mg/dL Creatinine (0.8-1.3) mg/dL Est Cr Clr Drug Dosing mL/min Estimated GFR (MDRD) ml/min Glucose (74-106) mg/dL Calcium (8.5-10.1) mg/dL Total Bilirubin (0.2-1.0) mg/dL AST (15-37) IU/L ALT (14-63) IU/L Alkaline Phosphatase (46-116) U/L Troponin I (0.000-0.056) ng/mL Total Protein (6.4-8.2) g/dL Albumin (3.4-5.0) g/dL Globulin (2.6-4.0) g/dL Albumin/Globulin Ratio (0.9-1.6) Lipase (73-393) U/L Urine Color Urine Appearance Urine pH (5.0-8.0) Ur Specific [place] (1.001-1.035) Urine Protein (NEGATIVE) mg/dL Urine Glucose (UA) (NEGATIVE) mg/dL Urine Ketones (NEGATIVE) mg/dL Urine Occult Blood (NEGATIVE) Urine Nitrite (NEGATIVE) Urine Bilirubin (NEGATIVE) Urine Ictotest Urine Urobilinogen (<2.0) EU/dL Ur Leukocyte Esterase (NEGATIVE) Urine RBC (0-2/HPF) Urine WBC (0-5/HPF) Ur Epithelial Cells (NONE-FEW) Urine Bacteria (NEGATIVE) Fine Granular Casts (NEGATIVE) Urine Mucus (NONE-MOD) COVID-19 (MARCUS) (NEGATIVE) 09/10/19 09/10/19 09/10/19 Range/Units 14:56 14:56 15:00 WBC (4.0-11.0) K/uL RBC (4.50-5.90) M/uL Hgb (13.0-17.0) g/dL Hct (38.0-50.0) % MCV (80.0-98.0) fL MCH (27.0-32.0) pg MCHC (31.0-37.0) g/dL RDW Std Deviation (28.0-62.0) fl RDW Coeff of Chris (11.0-15.0) % Plt Count (150-400) K/uL MPV (7.40-12.00) fL Neut % (Auto) (48.0-80.0) % Lymph % (Auto) (16.0-40.0) % Bureau % (Auto) (0.0-15.0) % Eos % (Auto) (0.0-7.0) % Baso % (Auto) (0.0-1.5) % Neut # (Auto) (1.4-5.7) K/uL Lymph # (Auto) (0.6-2.4) K/uL Bureau # (Auto) (0.0-0.8) K/uL Eos # (Auto) (0.0-0.7) K/uL Baso # (Auto) (0.0-0.1) K/uL Nucleated RBC % /100WBC Nucleated RBCs # K/uL INR ABG pH (7.35-7.45) ABG pCO2 (35-45) mmHG ABG pO2 (75-100) mmHG ABG HCO3 (22-26) mEq/L ABG Total CO2 ABG Base Excess (-2.0-2.0) VBG pH (7.31-7.41) VBG pCO2 (35-45) mmHG VBG pO2 (30-40) mmHG VBG HCO3 (22-30) mEq/L VBG Total CO2 (41-51) mmol/L VBG Base Excess (-3.0-3.0) Lactate 1.5 (0.20-2.00) mmol/L Sodium 137 (136-148) mmol/L Potassium 3.8 (3.5-5.1) mmol/L Chloride 100 (98-107) mmol/L Carbon Dioxide 25.8 (21.0-32.0) mmol/L BUN 18 (7.0-18.0) mg/dL Creatinine 1.4 H (0.8-1.3) mg/dL Est Cr Clr Drug Dosing 65.90 mL/min Estimated GFR (MDRD) 53.9 ml/min Glucose 107 H (74-106) mg/dL Calcium 8.1 L (8.5-10.1) mg/dL Total Bilirubin 1.1 H (0.2-1.0) mg/dL AST 36 (15-37) IU/L ALT 42 (14-63) IU/L Alkaline Phosphatase 109 (46-116) U/L Troponin I < 0.050 (0.000-0.056) ng/mL Total Protein 7.9 (6.4-8.2) g/dL Albumin 3.3 L (3.4-5.0) g/dL Globulin 4.6 H (2.6-4.0) g/dL Albumin/Globulin Ratio 0.7 L (0.9-1.6) Lipase 142 (73-393) U/L Urine Color Urine Appearance Urine pH (5.0-8.0) Ur Specific [place] (1.001-1.035) Urine Protein (NEGATIVE) mg/dL Urine Glucose (UA) (NEGATIVE) mg/dL Urine Ketones (NEGATIVE) mg/dL Urine Occult Blood (NEGATIVE) Urine Nitrite (NEGATIVE) Urine Bilirubin (NEGATIVE) Urine Ictotest Urine Urobilinogen (<2.0) EU/dL Ur Leukocyte Esterase (NEGATIVE) Urine RBC (0-2/HPF) Urine WBC (0-5/HPF) Ur Epithelial Cells (NONE-FEW) Urine Bacteria (NEGATIVE) Fine Granular Casts (NEGATIVE) Urine Mucus (NONE-MOD) COVID-19 (MARCUS) NEGATIVE (NEGATIVE) 09/10/19 09/11/19 09/11/19 Range/Units 23:50 05:55 05:55 WBC 16.48 H (4.0-11.0) K/uL RBC 4.18 L (4.50-5.90) M/uL Hgb 12.3 L (13.0-17.0) g/dL Hct 37.0 L (38.0-50.0) % MCV 88.5 (80.0-98.0) fL MCH 29.4 (27.0-32.0) pg MCHC 33.2 (31.0-37.0) g/dL RDW Std Deviation 42.3 (28.0-62.0) fl RDW Coeff of Chris 13 (11.0-15.0) % Plt Count 256 (150-400) K/uL MPV 9.00 (7.40-12.00) fL Neut % (Auto) 91.6 H (48.0-80.0) % Lymph % (Auto) 4.6 L (16.0-40.0) % Bureau % (Auto) 3.8 (0.0-15.0) % Eos % (Auto) 0.0 (0.0-7.0) % Baso % (Auto) 0.0 (0.0-1.5) % Neut # (Auto) 15.1 H (1.4-5.7) K/uL Lymph # (Auto) 0.8 (0.6-2.4) K/uL Bureau # (Auto) 0.6 (0.0-0.8) K/uL Eos # (Auto) 0.0 (0.0-0.7) K/uL Baso # (Auto) 0.0 (0.0-0.1) K/uL Nucleated RBC % 0.0 /100WBC Nucleated RBCs # 0 K/uL INR ABG pH (7.35-7.45) ABG pCO2 (35-45) mmHG ABG pO2 (75-100) mmHG ABG HCO3 (22-26) mEq/L ABG Total CO2 ABG Base Excess (-2.0-2.0) VBG pH (7.31-7.41) VBG pCO2 (35-45) mmHG VBG pO2 (30-40) mmHG VBG HCO3 (22-30) mEq/L VBG Total CO2 (41-51) mmol/L VBG Base Excess (-3.0-3.0) Lactate (0.20-2.00) mmol/L Sodium 137 (136-148) mmol/L Potassium 3.5 (3.5-5.1) mmol/L Chloride 103 (98-107) mmol/L Carbon Dioxide 23.2 (21.0-32.0) mmol/L BUN 20 H (7.0-18.0) mg/dL Creatinine 1.3 (0.8-1.3) mg/dL Est Cr Clr Drug Dosing 70.97 mL/min Estimated GFR (MDRD) 58.7 ml/min Glucose 113 H (74-106) mg/dL Calcium 7.6 L (8.5-10.1) mg/dL Total Bilirubin 1.0 (0.2-1.0) mg/dL AST 37 (15-37) IU/L ALT 35 (14-63) IU/L Alkaline Phosphatase 91 (46-116) U/L Troponin I (0.000-0.056) ng/mL Total Protein 6.8 (6.4-8.2) g/dL Albumin 2.6 L (3.4-5.0) g/dL Globulin 4.2 H (2.6-4.0) g/dL Albumin/Globulin Ratio 0.6 L (0.9-1.6) Lipase (73-393) U/L Urine Color YELLOW Urine Appearance SLT CLOUDY Urine pH 5.5 (5.0-8.0) Ur Specific [place] >= 1.030 (1.001-1.035) Urine Protein 100 H (NEGATIVE) mg/dL Urine Glucose (UA) NEGATIVE (NEGATIVE) mg/dL Urine Ketones TRACE H (NEGATIVE) mg/dL Urine Occult Blood NEGATIVE (NEGATIVE) Urine Nitrite NEGATIVE (NEGATIVE) Urine Bilirubin SMALL H (NEGATIVE) Urine Ictotest NEGATIVE Urine Urobilinogen 1.0 (<2.0) EU/dL Ur Leukocyte Esterase NEGATIVE (NEGATIVE) Urine RBC 0-2 (0-2/HPF) Urine WBC 0-2 (0-5/HPF) Ur Epithelial Cells RARE (NONE-FEW) Urine Bacteria FEW (NEGATIVE) Fine Granular Casts 0-1 (NEGATIVE) Urine Mucus LIGHT (NONE-MOD) COVID-19 (MARCUS) (NEGATIVE) 09/11/19 09/11/19 Range/Units 06:25 06:25 WBC (4.0-11.0) K/uL RBC (4.50-5.90) M/uL Hgb (13.0-17.0) g/dL Hct (38.0-50.0) % MCV (80.0-98.0) fL MCH (27.0-32.0) pg MCHC (31.0-37.0) g/dL RDW Std Deviation (28.0-62.0) fl RDW Coeff of Chris (11.0-15.0) % Plt Count (150-400) K/uL MPV (7.40-12.00) fL Neut % (Auto) (48.0-80.0) % Lymph % (Auto) (16.0-40.0) % Bureau % (Auto) (0.0-15.0) % Eos % (Auto) (0.0-7.0) % Baso % (Auto) (0.0-1.5) % Neut # (Auto) (1.4-5.7) K/uL Lymph # (Auto) (0.6-2.4) K/uL Bureau # (Auto) (0.0-0.8) K/uL Eos # (Auto) (0.0-0.7) K/uL Baso # (Auto) (0.0-0.1) K/uL Nucleated RBC % /100WBC Nucleated RBCs # K/uL INR ABG pH 7.428 (7.35-7.45) ABG pCO2 35 (35-45) mmHG ABG pO2 76 (75-100) mmHG ABG HCO3 23 (22-26) mEq/L ABG Total CO2 20.4 ABG Base Excess -0.9 (-2.0-2.0) VBG pH (7.31-7.41) VBG pCO2 (35-45) mmHG VBG pO2 (30-40) mmHG VBG HCO3 (22-30) mEq/L VBG Total CO2 (41-51) mmol/L VBG Base Excess (-3.0-3.0) Lactate 0.5 (0.20-2.00) mmol/L Sodium (136-148) mmol/L Potassium (3.5-5.1) mmol/L Chloride (98-107) mmol/L Carbon Dioxide (21.0-32.0) mmol/L BUN (7.0-18.0) mg/dL Creatinine (0.8-1.3) mg/dL Est Cr Clr Drug Dosing mL/min Estimated GFR (MDRD) ml/min Glucose (74-106) mg/dL Calcium (8.5-10.1) mg/dL Total Bilirubin (0.2-1.0) mg/dL AST (15-37) IU/L ALT (14-63) IU/L Alkaline Phosphatase (46-116) U/L Troponin I (0.000-0.056) ng/mL Total Protein (6.4-8.2) g/dL Albumin (3.4-5.0) g/dL Globulin (2.6-4.0) g/dL Albumin/Globulin Ratio (0.9-1.6) Lipase (73-393) U/L Urine Color Urine Appearance Urine pH (5.0-8.0) Ur Specific [place] (1.001-1.035) Urine Protein (NEGATIVE) mg/dL Urine Glucose (UA) (NEGATIVE) mg/dL Urine Ketones (NEGATIVE) mg/dL Urine Occult Blood (NEGATIVE) Urine Nitrite (NEGATIVE) Urine Bilirubin (NEGATIVE) Urine Ictotest Urine Urobilinogen (<2.0) EU/dL Ur Leukocyte Esterase (NEGATIVE) Urine RBC (0-2/HPF) Urine WBC (0-5/HPF) Ur Epithelial Cells (NONE-FEW) Urine Bacteria (NEGATIVE) Fine Granular Casts (NEGATIVE) Urine Mucus (NONE-MOD) COVID-19 (MARCUS) (NEGATIVE) Med Orders - Current: Current Medications Acetaminophen (Tylenol) 650 mg PO Q4H PRN PRN Reason: Pain (Mild 1-3)/fever Last Admin: 09/11/19 09:00 Dose: 650 mg Documented by: Atorvastatin Calcium (Lipitor) 20 mg PO DAILY [facility] Last Admin: 09/11/19 08:59 Dose: 20 mg Documented by: Benzocaine/Menthol (Cepacol Sore Throat) 1 lozenge MUCMEM Q2HR PRN PRN Reason: Sore Throat Stop: 09/13/19 21:27 Last Admin: 09/10/19 23:08 Dose: 1 lozenge Documented by: Escitalopram Oxalate (Lexapro) 10 mg PO DAILY [facility] Last Admin: 09/11/19 09:00 Dose: 10 mg Documented by: Fentanyl (Fentanyl) 25 mcg IVPUSH Q1H PRN PRN Reason: Pain Guaifenesin (Mucus Relief) 200 mg PO Q6H PRN PRN Reason: Cough Last Admin: 09/11/19 09:08 Dose: 200 mg Documented by: Heparin Sodium (Porcine) (Heparin Sodium) 5,000 units SUBCUT Q8H [facility] Last Admin: 09/11/19 04:06 Dose: 5,000 units Documented by: Sodium Chloride (Normal Saline) 1,000 mls @ 125 mls/hr IV STAT [facility] Last Admin: 09/11/19 10:35 Dose: 125 mls/hr Documented by: Levofloxacin/Dextrose 750 mg/ (Premix) 150 mls @ 100 mls/hr IV Q24H [facility] Last Admin: 09/10/19 18:48 Dose: 100 mls/hr Documented by: Cefepime HCl 2 gm/ Premix 50 mls @ 100 mls/hr IV Q8H [facility] Last Admin: 09/11/19 07:40 Dose: 100 mls/hr Documented by: Propofol (Diprivan 100 Ml) 100 mls @ 51.437 mls/hr IV TITRATE [facility]; Protocol Midazolam HCl (Versed 5 Mg/Ml) 5 mg IVPUSH ONETIME PRN PRN Reason: Agitation Ondansetron HCl (Zofran Odt) 4 mg PO Q4H PRN PRN Reason: nausea, able to take PO Ondansetron HCl (Zofran) 4 mg IVPUSH Q4H PRN PRN Reason: Nausea Rocuronium [place] (Zemuron) 50 mg IVPUSH ONETIME PRN PRN Reason: Agitation Sodium Chloride (Saline Flush) 10 ml FLUSH ASDIRECTED PRN PRN Reason: Keep Vein Open Last Admin: 09/10/19 14:56 Dose: 10 ml Documented by: Sodium Chloride (Saline Flush) 2.5 ml FLUSH ASDIRECTED PRN PRN Reason: Keep Vein Open Last Admin: 09/10/19 14:57 Dose: 2.5 ml Documented by: Tamsulosin HCl (Flomax) 0.4 mg PO DAILY [facility] Last Admin: 09/11/19 09:00 Dose: 0.4 mg Documented by: Vancomycin HCl (Pharmacy To Dose - Vancomycin) 1 dose .XX ASDIRECTED [facility] Discontinued Medications Acetaminophen (Tylenol Extra Strength) 1,000 mg PO ONETIME ONE Stop: 09/10/19 14:36 Last Admin: 09/10/19 14:44 Dose: 1,000 mg Documented by: Fentanyl (Fentanyl) 25 mcg IVPUSH ONETIME ONE Stop: 09/11/19 02:13 Last Admin: 09/11/19 02:23 Dose: 25 mcg Documented by: Fentanyl (Sublimaze) Confirm Administered Dose 100 mcg .ROUTE .STK-MED ONE Stop: 09/11/19 02:20 Last Admin: 09/11/19 02:44 Dose: Not Given Documented by: Guaifenesin (Robitussin) 200 mg PO Q6H PRN PRN Reason: Cough Last Admin: 09/10/19 23:30 Dose: 200 mg Documented by: Heparin Sodium (Porcine) (Heparin Sodium) 5,000 units SUBCUT Q8H [facility] Last Admin: 09/10/19 18:48 Dose: 5,000 units Documented by: Cefepime HCl 2 gm/ Premix 50 mls @ 100 mls/hr IV ONETIME ONE Stop: 09/10/19 15:58 Last Admin: 09/10/19 16:24 Dose: Not Given Documented by: Vancomycin HCl 1.75 gm/ Sodium (Chloride) 500 mls @ 250 mls/hr IV ONETIME [facility] Stop: 09/10/19 18:30 Last Admin: 09/10/19 16:15 Dose: 250 mls/hr Documented by: Cefepime HCl 2 gm/ Premix 50 mls @ 100 mls/hr IV ONETIME ONE Stop: 09/10/19 16:44 Last Admin: 09/10/19 16:23 Dose: 100 mls/hr Documented by: Propofol (Diprivan 100 Ml) Confirm Administered Dose 100 mls @ as directed .R OUTE .STK-MED ONE Stop: 09/11/19 10:21 Last Admin: 09/11/19 10:51 Dose: 34.2 mls/hr Documented by: Ibuprofen (Motrin) 400 mg PO ONETIME ONE Stop: 09/10/19 15:54 Last Admin: 09/10/19 16:15 Dose: 400 mg Documented by: Midazolam HCl (Versed 1 Mg/Ml) Confirm Administered Dose 2 mg .ROUTE .STK-MED ONE Stop: 09/11/19 11:29 Rocuronium [place] (Zemuron) 50 mg IVPUSH ONETIME ONE Stop: 09/11/19 11:20 Sodium Chloride (Saline Flush) 10 ml FLUSH ASDIRECTED PRN PRN Reason: Keep Vein Open Sodium Chloride (Saline Flush) 2.5 ml FLUSH ASDIRECTED PRN PRN Reason: Keep Vein Open Tamsulosin HCl (Flomax) 0.4 mg PO BEDTIME [facility] Vancomycin HCl (Pharmacy To Dose - Vancomycin) 1 dose .XX ONETIME ONE Stop: 09/10/19 15:30 Last Admin: 09/10/19 16:23 Dose: Not Given Documented by: <Delmar Guzmán J - Last Filed: 09/13/19 18:42> Discharge Summary - Referral to Home Health Primary Care Physician: PCP None - Patient Summary/Data Consults: Consultations 09/10/19 17:20 Consult to Respiratory Therapy [Respiratory Care Assess and Treatment] [CONS] Routine - Patient Data Vitals - Most Recent: Last Vital Signs Temp 37.7 C 09/11/19 11:00 Pulse 90 09/10/19 17:41 Resp 13 09/11/19 12:00 BP 145/82 H 09/11/19 12:00 Pulse Ox 93 L 09/11/19 12:00 EMIL Results - Last 24 hrs: Microbiology 09/10/19 14:56 Aerobic Blood Culture - Preliminary Blood - Venous - Lab Draw NO GROWTH AFTER 3 DAYS Anaerobic Blood Culture - Preliminary NO GROWTH AFTER 3 DAYS 09/10/19 14:45 Aerobic Blood Culture - Preliminary Blood - Venous NO GROWTH AFTER 3 DAYS Anaerobic Blood Culture - Preliminary NO GROWTH AFTER 3 DAYS 09/10/19 20:47 MRSA Culture - Final Nasal, Left NO MRSA ISOLATED Med Orders - Current: Current Medications Discontinued Medications Acetaminophen (Tylenol Extra Strength) 1,000 mg PO ONETIME ONE Stop: 09/10/19 14:36 Last Admin: 09/10/19 14:44 Dose: 1,000 mg Documented by: Acetaminophen (Tylenol) 650 mg PO Q4H PRN PRN Reason: Pain (Mild 1-3)/fever Last Admin: 09/11/19 09:00 Dose: 650 mg Documented by: Atorvastatin Calcium (Lipitor) 20 mg PO DAILY [facility] Last Admin: 09/11/19 08:59 Dose: 20 mg Documented by: Benzocaine/Menthol (Cepacol Sore Throat) 1 lozenge MUCMEM Q2HR PRN PRN Reason: Sore Throat Stop: 09/13/19 21:27 Last Admin: 09/10/19 23:08 Dose: 1 lozenge Documented by: Escitalopram Oxalate (Lexapro) 10 mg PO DAILY [facility] Last Admin: 09/11/19 09:00 Dose: 10 mg Documented by: Fentanyl (Fentanyl) 25 mcg IVPUSH ONETIME ONE Stop: 09/11/19 02:13 Last Admin: 09/11/19 02:23 Dose: 25 mcg Documented by: Fentanyl (Sublimaze) Confirm Administered Dose 100 mcg .ROUTE .STK-MED ONE Stop: 09/11/19 02:20 Last Admin: 09/11/19 02:44 Dose: Not Given Documented by: Fentanyl (Sublimaze) 25 mcg IVPUSH Q1H PRN PRN Reason: Pain Guaifenesin (Robitussin) 200 mg PO Q6H PRN PRN Reason: Cough Last Admin: 09/10/19 23:30 Dose: 200 mg Documented by: Guaifenesin (Mucus Relief) 200 mg PO Q6H PRN PRN Reason: Cough Last Admin: 09/11/19 09:08 Dose: 200 mg Documented by: Heparin Sodium (Porcine) (Heparin Sodium) 5,000 units SUBCUT Q8H [facility] Last Admin: 09/10/19 18:48 Dose: 5,000 units Documented by: Heparin Sodium (Porcine) (Heparin Sodium) 5,000 units SUBCUT Q8H [facility] Last Admin: 09/11/19 12:30 Dose: Not Given Documented by: Cefepime HCl 2 gm/ Premix 50 mls @ 100 mls/hr IV ONETIME ONE Stop: 09/10/19 15:58 Last Admin: 09/10/19 16:24 Dose: Not Given Documented by: Vancomycin HCl 1.75 gm/ Sodium (Chloride) 500 mls @ 250 mls/hr IV ONETIME [facility] Stop: 09/10/19 18:30 Last Admin: 09/10/19 16:15 Dose: 250 mls/hr Documented by: Cefepime HCl 2 gm/ Premix 50 mls @ 100 mls/hr IV ONETIME ONE Stop: 09/10/19 16:44 Last Admin: 09/10/19 16:23 Dose: 100 mls/hr Documented by: Sodium Chloride (Normal Saline) 1,000 mls @ 125 mls/hr IV STAT [facility] Last Admin: 09/11/19 10:35 Dose: 125 mls/hr Documented by: Levofloxacin/Dextrose 750 mg/ (Premix) 150 mls @ 100 mls/hr IV Q24H [facility] Last Admin: 09/10/19 18:48 Dose: 100 mls/hr Documented by: Cefepime HCl 2 gm/ Premix 50 mls @ 100 mls/hr IV Q8H [facility] Last Admin: 09/11/19 07:40 Dose: 100 mls/hr Documented by: Propofol (Diprivan 100 Ml) Confirm Administered Dose 100 mls @ as directed .ROUTE .STK-MED ONE Stop: 09/11/19 10:21 Last Admin: 09/11/19 10:51 Dose: 34.2 mls/hr Documented by: Propofol (Diprivan 100 Ml) 100 mls @ 51.437 mls/hr IV TITRATE [facility]; Protocol Ibuprofen (Motrin) 400 mg PO ONETIME ONE Stop: 09/10/19 15:54 Last Admin: 09/10/19 16:15 Dose: 400 mg Documented by: Midazolam HCl (Versed 1 Mg/Ml) 5 mg IV ONETIME PRN PRN Reason: Agitation Last Admin: 09/11/19 11:35 Dose: 1 mg Documented by: Midazolam HCl (Versed 1 Mg/Ml) Confirm Administered Dose 2 mg .ROUTE .STK-MED ONE Stop: 09/11/19 11:29 Last Admin: 09/11/19 12:59 Dose: Not Given Documented by: Ondansetron HCl (Zofran Odt) 4 mg PO Q4H PRN PRN Reason: nausea, able to take PO Ondansetron HCl (Zofran) 4 mg IVPUSH Q4H PRN PRN Reason: Nausea Rocuronium [place] (Zemuron) 50 mg IVPUSH ONETIME ONE Stop: 09/11/19 11:20 Last Admin: 09/11/19 12:59 Dose: Not Given Documented by: Rocuronium [place] (Zemuron) 50 mg IVPUSH ONETIME PRN PRN Reason: Agitation Last Admin: 09/11/19 11:30 Dose: 50 mg Documented by: Sodium Chloride (Saline Flush) 10 ml FLUSH ASDIRECTED PRN PRN Reason: Keep Vein Open Sodium Chloride (Saline Flush) 2.5 ml FLUSH ASDIRECTED PRN PRN Reason: Keep Vein Open Sodium Chloride (Saline Flush) 10 ml FLUSH ASDIRECTED PRN PRN Reason: Keep Vein Open Last Admin: 09/10/19 14:56 Dose: 10 ml Documented by: Sodium Chloride (Saline Flush) 2.5 ml FLUSH ASDIRECTED PRN PRN Reason: Keep Vein Open Last Admin: 09/10/19 14:57 Dose: 2.5 ml Documented by: Tamsulosin HCl (Flomax) 0.4 mg PO BEDTIME LATRICE Tamsulosin HCl (Flomax) 0.4 mg PO DAILY LATRICE Last Admin: 09/11/19 09:00 Dose: 0.4 mg Documented by: Vancomycin HCl (Pharmacy To Dose - Vancomycin) 1 dose .XX ONETIME ONE Stop: 09/10/19 15:30 Last Admin: 09/10/19 16:23 Dose: Not Given Documented by: - Free Text/Narrative Note: I have seen and evaluated the patient with the resident. I have discussed findings and treatment plan with the resident. I agree with the assessment and plan outlined in the following note.
--- NOTE | 2019-09-11 11:56 | CR ---
Chest: Portable view of the chest was obtained. Comparison: Previous chest x-ray of 09/10/19. Endotracheal tube is seen. Tip lies the upper level of the clavicles. Masslike area of consolidation seen within the left midlung. This presumably represents developing pneumonia. Both lung volumes are low. Atelectasis is seen within both lungs. Impression: 1. Tip of endotracheal tube at the upper level of the clavicles. 2. Masslike area of consolidation within the left midlung presumably representing developing pneumonia. 3. Low lung volumes causing bilateral atelectasis. Diagnostic code #3 This report was dictated in MDT
== END 2019-09-11 12:35 | DRG 871 ==
LOC: MW.ED 14:24 → MW.ICU 16:03
PROVIDERS: ADMIT Internal Medicine; ATTEND Internal Medicine
PROC: 5A09457 Assistance with Respiratory Ventilation, 24-96 Consecutive Hours, Continuous Positive Airway Pressure (ICD-10-PCS; principal; 2019-09-11)
PROC: 0BH17EZ Insertion of Endotracheal Airway into Trachea, Via Natural or Artificial Opening (ICD-10-PCS; 2019-09-11)
PROC: 5A1935Z Respiratory Ventilation, Less than 24 Consecutive Hours (ICD-10-PCS; 2019-09-11)
DX: A41.9 Sepsis, unspecified organism (principal); J18.9 Pneumonia, unspecified organism; J96.01 Acute respiratory failure with hypoxia; K86.1 Other chronic pancreatitis; N17.9 Acute kidney failure, unspecified; I10 Essential (primary) hypertension; N40.0 Benign prostatic hyperplasia without lower urinary tract symptoms; Z99.81 Dependence on supplemental oxygen; Z20.828 Contact with and (suspected) exposure to other viral communicable diseases; Z79.899 Other long term (current) drug therapy; H54.7 Unspecified visual loss; E78.00 Pure hypercholesterolemia, unspecified; Z87.442 Personal history of urinary calculi; F41.9 Anxiety disorder, unspecified; G43.909 Migraine, unspecified, not intractable, without status migrainosus; Z90.49 Acquired absence of other specified parts of digestive tract; Z98.890 Other specified postprocedural states; G47.33 Obstructive sleep apnea (adult) (pediatric)
CPT/HCPCS: 31500; 36415; 36600; 51701; 51702; 71045; 71045-26; 80053; 81001; 82803; 83605; 83690; 84484; 85025; 85610; 87040; 87070; 87899; 93005; 94660; 99284; 99285-25; A9270-GY; J0692; J1644; J1956; J2250; J2704; J3010; J3370; J7030; J7040; U0002

== ENCOUNTER 2020-09-14 03:31 | Emergency (ER) | payer OTHER ==
[2020-09-14] MEDS ORDERED: Aspirin 81 MG Tab.Chew PO ONE (03:41)
[2020-09-14 04:10] LABS: BLOOD UREA NITROGEN,BUN 28 mg/dL (7.0-18.0); CARBON DIOXIDE,CO2 26.1 mmol/L (21.0-32.0); CHLORIDE,CL 107 mmol/L (98-107); GLUCOSE RANDOM 98 mg/dL (74-106); LIPASE 124 U/L (73-393); POTASSIUM,K 4.4 mmol/L (3.5-5.1); SODIUM,NA 142 mmol/L (136-148)
--- NOTE | 2020-09-14 04:43 | CR ---
HISTORY: Chest pain. TECHNIQUE: Portable frontal view the chest. COMPARISON: None. FINDINGS: No airspace consolidation. No pleural effusion or pneumothorax. Pulmonary vasculature and cardiomediastinal silhouette are within normal limits. IMPRESSION: No cardiopulmonary abnormality. Dictated by Pa Rothman MD @ 09/14/2020 4:42:[address] Pa Rothman @ Sep 14 2020 4:42AM
--- NOTE | 2020-09-14 05:14 | EDM.PDOC ---
ED HPI GENERAL MEDICAL PROBLEM - General Chief Complaint: Chest Pain Stated Complaint: CHEST PAIN AND PRESSURE Time Seen by Provider: 09/14/20 03:36 - History of Present Illness INITIAL COMMENTS - FREE TEXT/NARRATIVE: CHIEF COMPLAINT(S): Chest pain HISTORY OF PRESENT ILLNESS: This is a 49-year-old man with a past medical history of hypertension who comes to the emergency department with a chief complaint of chest pain and shortness of breath. The patient states that for approximately 2 days now he has been experiencing chest pain on the left and right side of his chest associated with shortness of breath. There is no d iaphoresis, nausea or vomiting. There is no radiation of this pain. No aggravating or relieving factors. He denies any history of CAD or early onset CAD in his family. He denies any recent travel, recent surgery, prior history of DVT or PE. He rates the pain as 3 out of 10 and achy. REVIEW OF SYSTEMS: Constitutional: Denies fever, chills. Eyes: Denies eye pain Ears, Nose, Mouth, & Throat: Denies earache Cardiovascular: Positive for chest pain Respiratory: Positive for shortness of breath gastrointestinal: Denies Nausea, vomiting, diarrhea, hematochezia. Genitourinary: Denies hematuria Skin:Denies a rash MSK: Denies joint pain Neurological: Denies blurred vision Psychiatric: Denies depression PAST MEDICAL HISTORY: As per history of present illness and as reviewed below otherwise noncontributory. SURGICAL HISTORY: As per history of present illness and as reviewed below otherwise noncontributory. SOCIAL HISTORY: As per history of present illness and as reviewed below otherw ise noncontributory. FAMILY HISTORY: As per history of present illness and as reviewed below otherwise noncontributory. EXAMINATION OF ORGAN SYSTEMS/BODY AREAS: Constitutional: Blood pressure is 140/89, heart rate 88, respiratory rate 18 with an oxygen saturation 97% on room air. Temperature 35.9 General: Overall well-appearing man who is in no acute distress Psychiatric: Appropriate mood and affect. Eyes: No scleral icterus or conjunctival erythema ENMT: Moist mucous membranes. No pharyngeal erythema Cardiovascular: Regular, rate, and rhythm. No gallops, murmurs, or rubs. Bilateral upper extremity pulses symmetric and intact. No peripheral edema. No JVD. Respiratory: Lungs clear to auscultation bilaterally. No wheezes, rales, or rhonchi. Gastrointestinal: Soft, non-tender, non-distended. Normoactive bowel sounds Genitourinary: No suprapubic tenderness Musculoskeletal: Normal range of motion. Skin: No lesions or abrasions. Neurological: Alert, GCS 15 MEDICAL DECISION MAKING AND COURSE IN THE ED WITH INTERPRETATION/REVIEW OF DIAGNOSTIC STUDIES: This is a 49-year-old man without any significant past medical history other than hypertension who comes to the emergency department with chest pain and shortness of breath for the last 48 hours. The patient has normal vital signs. At this time given the chest pain we will undergo a cardiac work-up. Only 1 troponin is needed. We will provide the patient with aspirin by mouth and obtain a EKG which was unremarkable. Cardiac labs will be obtained and a chest x-ray. We will place patient on cardiac monitoring and pulse oximetry. Laboratory studies were unremarkable with a negative troponin. The radiological images were viewed by myself along with reading the report from the radiologist. Chest x-ray does not reveal any acute cardiopulmonary process. Heart Score History: Slightly or Non-Suspicious (0) ECG: Normal (0) Age: 45-64 (1) Risk Factors: 1-2 (1) Initial Troponin: </= normal limit (0) Total Score: 2 Wells Criteria Clinical signs/symptoms of DVT: No (0) PE #1 Dx or equally likely: No (0) Heart Rate >100: No (0) Immobilization for 3 days or surgery in last month: No (0) Previously Dx PE or DVT: No (0) Hemoptysis: No (0) Malignancy w/ Tx within 6 months or palliative: No (0) Wells Score: 0 After labs I did discuss results with the patient. I did encourage the patient to follow-up with his primary care physician. He is low risk for ACS at this time and encouraged him to follow-up with his primary care physician. He is to return for new or worsening symptoms. He was amenable discharge and had no further questions DISPOSITION: The patient was discharged home in stable condition. The patient will follow up with primary care physician in 1 to 3 days CONDITION: Fair PROCEDURES: None FINAL IMPRESSION(S)/DIAGNOSES: 1. Acute atypical chest pain 2. Acute shortness of breath Rohan Posada M.D. chest Pain Score (Numeric/FACES): 3 - Related Data Allergies Allergy/AdvReac Type Severity Reaction Status Date / Time No Known Allergies Allergy Verified 09/14/20 03:43 Home Meds: Home Meds Celecoxib [CeleBREX] 200 mg PO DAILY 05/13/19 [History] Escitalopram [Lexapro] 10 mg PO DAILY 05/13/19 [History] Tamsulosin [Flomax] 0.4 mg PO BEDTIME 05/13/19 [History] atorvaSTATin [Lipitor] 20 mg PO DAILY 05/13/19 [History] lisinopriL [Zestril] 20 mg PO DAILY 05/13/19 [History] Azithromycin [Zithromax] 250 mg PO DAILY #4 tablet 09/08/19 [Rx] Ondansetron [Zofran ODT] 4 mg PO Q6H PRN #12 tab.dis 09/08/19 [Rx] Past Medical History HEENT History: Reports: Impaired Vision, Other (See Below) Other HEENT History: wears glasses Cardiovascular History: Reports: High Cholesterol, Hypertension Respiratory History: Reports: Sleep Apnea, Other (See Below) Other Respiratory History: on cpap Gastrointestinal History: Reports: None Genitourinary History: Reports: Prostate Disorder, Renal Calculus Musculoskeletal History: Reports: None Neurological History: Reports: Migraines Psychiatric History: Reports: Anxiety Endocrine/Metabolic History: Reports: None Insulin Pump Model and Process Trainer: None Hematologic History: Reports: None Oncologic (Cancer) History: Reports: None Dermatologic History: Reports: None - Infectious Disease History Infectious Disease History: Reports: Chicken Pox, Other (See Below) Other Infectious Disease History: Covid-19 - Past Surgical History Head Surgeries/Procedures: Reports: None HEENT Surgical History: Reports: None Cardiovascular Surgical History: Reports: None Respiratory Surgical History: Reports: None GI Surgical History: Reports: Appendectomy, Cholecystectomy, Hernia Repair/Other Male Surgical History: Reports: Kidney Stone Extraction Neurological Surgical History: Reports: None Musculoskeletal Surgical History: Reports: Other (See Below) Other Musculoskeletal Surgeries/Procedures:: Knee Scope Social & Family History - Family History Family Medical History: No Pertinent Family History - Caffeine Use Caffeine Use: Reports: Tea - Recreational Drug Use Recreational Drug Use: No ED ROS GENERAL - Review of Systems Review Of Systems: See Below ED EXAM, GENERAL - Physical Exam Exam: See Below Course - Vital Signs Last Recorded V/S: Last Vital Signs Temp 36 C L 09/14/20 05:31 Pulse 82 09/14/20 05:31 Resp 18 09/14/20 05:31 BP 128/91 H 09/14/20 05:31 Pulse Ox 97 09/14/20 05:31 - Orders/Labs/Meds Labs: Laboratory Tests 09/14/20 09/14/20 Range/Units 03:40 03:40 WBC 8.83 (4.0-11.0) K/uL RBC 4.80 (4.50-5.90) M/uL Hgb 14.2 (13.0-17.0) g/dL Hct 41.4 (38.0-50.0) % MCV 86.3 (80.0-98.0) fL MCH 29.6 (27.0-32.0) pg MCHC 34.3 (31.0-37.0) g/dL RDW Std Deviation 42.3 (28.0-62.0) fl RDW Coeff of Chris 13 (11.0-15.0) % Plt Count 282 (150-400) K/uL MPV 9.10 (7.40-12.00) fL Neut % (Auto) 72.1 (48.0-80.0) % Lymph % (Auto) 20.2 (16.0-40.0) % [place] % (Auto) 6.7 (0.0-15.0) % Eos % (Auto) 0.9 (0.0-7.0) % Baso % (Auto) 0.1 (0.0-1.5) % Neut # (Auto) 6.4 H (1.4-5.7) K/uL Lymph # (Auto) 1.8 (0.6-2.4) K/uL [place] # (Auto) 0.6 (0.0-0.8) K/uL Eos # (Auto) 0.1 (0.0-0.7) K/uL Baso # (Auto) 0.0 (0.0-0.1) K/uL Nucleated RBC % 0.0 /100WBC Nucleated RBCs # 0 K/uL Sodium 142 (136-148) mmol/L Potassium 4.4 (3.5-5.1) mmol/L Chloride 107 (98-107) mmol/L Carbon Dioxide 26.1 (21.0-32.0) mmol/L BUN 28 H (7.0-18.0) mg/dL Creatinine 1.2 (0.8-1.3) mg/dL Est Cr Clr Drug Dosing 76.04 mL/min Estimated GFR (MDRD) > 60.0 ml/min Glucose 98 (74-106) mg/dL Calcium 8.9 (8.5-10.1) mg/dL Magnesium 1.8 (1.8-2.4) mg/dL Total Bilirubin 0.4 (0.2-1.0) mg/dL AST 36 (15-37) IU/L ALT 57 (14-63) IU/L Alkaline Phosphatase 128 H (46-116) U/L Troponin I < 0.050 (0.000-0.056) ng/mL Total Protein 7.3 (6.4-8.2) g/dL Albumin 4.1 (3.4-5.0) g/dL Globulin 3.2 (2.6-4.0) g/dL Albumin/Globulin Ratio 1.3 (0.9-1.6) Lipase 124 (73-393) U/L Meds: Medications Discontinued Medications Generic Name Dose Route Start Last Admin Trade Name Freq PRN Reason Stop Dose Admin Aspirin 324 mg 09/14/20 03:41 09/14/20 03:46 Aspirin 81 Mg Tab.Chew PO 09/14/20 03:42 324 mg ONETIME ONE Administration Departure - Departure Time of Disposition: 05:14 Disposition: Home, Self-Care 01 Condition: Fair Clinical Impression: Atypical chest pain, Abdominal pain - Discharge Information *PRESCRIPTION DRUG MONITORING PROGRAM REVIEWED*: No *COPY OF PRESCRIPTION DRUG MONITORING REPORT IN PATIENT DONALD: No Instructions: Abdominal Pain, Adult, [id number], Nonspecific Chest Pain, Adult, [id number] Referrals: PCP,None [Primary Care Provider] - Forms: ED Department Discharge Additional Instructions: You were evaluated today on an emergent basis. At this time it is uncertain as to what is causing your symptoms however given the duration we did do a heart work-up and looked at your pancreas all of which were normal. At this time I do recommend that you follow-up with your primary care physician in 1 to 3 days for reevaluation. If you have any worsening symptoms such as worsening chest pain, shortness of breath, passing out I would like you to return to the emergency department. . [facility] [address] [place] [address] [facility] [address] [place] [address] The patient is informed of any results of their evaluation and diagnostic workup and all questions are answered. They are given discharge instructions and return precautions. The patient is stable for discharge. The patient states they understand and agree with the plan and that they will return if their symptoms get worse or if they have any new concerns. The following information is given to patients seen in the emergency department who are being discharged to home. This information is to outline your options for follow-up care. We provide all patients seen in our emergency department with a follow-up referral. The need for follow-up, as well as the timing and circumstances, are variable depending upon the specifics of your emergency department visit. If you don't have a primary care physician on staff, we will provide you with a referral. We always advise you to contact your personal physician following an emergency department visit to inform them of the circumstance of the visit and for follow-up with them and/or the need for any referrals to a consulting specialist. The emergency department will also refer you to a specialist when appropriate. This referral assures that you have the opportunity for follow-up care with a specialist. All of these measure are taken in an effort to provide you with optimal care, which includes your follow-up. Under all circumstances we always encourage you to contact your private physician who remains a resource for coordinating your care. When calling for follow-up care, please make the office aware that this follow-up is from your recent emergency room visit. If for any reason you are refused follow-up, please contact the [facility] Emergency Department at and asked to speak to the emergency department charge nurse. Sepsis Event Note (ED) - Evaluation Sepsis Screening Result: No Definite Risk
--- NOTE | 2020-09-14 06:37 | PCM.EKG ---
#1 Interpretation EKG Date: 09/14/20 Time: 03:34 Rhythm: NSR Rate (Beats/Min): 83 [place]: Normal P-Wave: Present QRS: Normal ST-T: Normal QT: Normal Comparison: No Change (09/10/19) EKG Interpretation Comments: Sinus Rhythm
== END 2020-09-14 05:31 | disposition home or self-care (01) ==
LOC: MW.ED 03:31
DX: R07.89 Other chest pain (principal); R10.9 Unspecified abdominal pain; R06.02 Shortness of breath; E78.00 Pure hypercholesterolemia, unspecified; I10 Essential (primary) hypertension; Z79.899 Other long term (current) drug therapy; Z86.16 Personal history of COVID-19
CPT/HCPCS: 36415; 71045; 80053; 83690; 83735; 84484; 85025; 93005; 99285; A9270